=== PATIENT | female | born 1950 | race Caucasian/White ===

== ENCOUNTER → 2018-07-17 | Outpatient (CLI) | payer MEDICARE, OTHER | END | disposition home or self-care (01) | LOC: LABWHC1 11:58 | PROVIDERS: ATTEND Psychiatry & Neurology Pain Medicine | DX: Z51.81 Encounter for therapeutic drug level monitoring (principal) | CPT/HCPCS: 36415; 82565; 84520 ==

== ENCOUNTER → 2020-04-08 | Outpatient (CLI) | payer MEDICARE, OTHER ==
--- NOTE | 2020-04-08 14:04 | CT ---
EXAMINATION TYPE: CT abdomen pelvis w con DATE OF EXAM: 04/08/2020 COMPARISON: NONE HISTORY: 69-year-old female encounter further preprocedural examination. Sacrococcygeal disorders. 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 Delayed images through the kidneys and coronal/sagittal reconstructions perform ed. CT DLP: 765.00 mGycm Automated exposure control for dose reduction was used. FINDINGS: Heart normal size without pericardial effusion. Lung bases clear without pleural effusion. Tiny hiatal hernia. Mild prominence to the intrahepatic biliary system status post cholecystectomy. Mild itself does not appear dilated. Portal venous system is patent. Cholecystectomy clips. Adrenal glands and atrophic pancreas show no gross abnormality. Spleen borderline in size at 13.4 cm. Kidneys show innumerable small hypodense lesions. These are too small for accurate CT characterizatio n and likely represent numerous tiny cortical cysts. A 6-12 month follow-up CT can reassess these les ions. Symmetric uptake of contrast from both kidneys. No dilated small bowel, free fluid, free air. Normal appendix. Moderate stool within the transverse colon. No pericolonic inflammatory change. Bladder during distended. Numerous pelvic phleboliths. Uterus surgically absent. Suspect visualizatio n of the right ovary. Left ovary not clearly identified. No abnormal fluid collection pelvis or pelvi c lymphadenopathy. Bones: Generator device overlying the left gluteal region. Spinal stimulator leads enter the T11-T12 internal laminar space. Advanced hypertrophic facet arthropathy throughout. Moderate to advanced degenerative disc disease L3 -L4 and L4-L5. Bilateral L4 pars defects with grade 2 anterolisthesis at L4-L5. Mild degenerative change at the SI joints with some joint vacuum posteriorly. Moderate degenerative change at the left greater than right hips. IMPRESSION: 1. INNUMERABLE SMALL HYPODENSE LESIONS WITHIN BOTH KIDNEYS, LIKELY CORTICAL CYSTS. THEY ARE TOO SMALL FOR ACCURATE CT CHARACTERIZATION. A FOLLOW-UP IN 6-12 MONTHS CAN REASSESS THESE LESIONS FOR STABILIT Y. 2. HYPERTROPHIC FACET ARTHROPATHY THROUGHOUT. MODERATE TO ADVANCED DEGENERATIVE DISC DISEASE L3-L4 AN D L4-L5. BILATERAL L4 PARS DEFECTS WITH GRADE 2 ANTEROLISTHESIS AT L4-L5. 3. MILD DEGENERATIVE CHANGE AT THE SI JOINTS. MODERATE DEGENERATIVE CHANGE LEFT GREATER THAN RIGHT HI PS.
== END | disposition home or self-care (01) ==
LOC: RADCTMAIN 09:49
PROVIDERS: ATTEND Psychiatry & Neurology Neurology
DX: Z01.818 Encounter for other preprocedural examination (principal); N28.9 Disorder of kidney and ureter, unspecified; M53.3 Sacrococcygeal disorders, not elsewhere classified; M47.818 Spondylosis without myelopathy or radiculopathy, sacral and sacrococcygeal region; Z51.81 Encounter for therapeutic drug level monitoring
CPT/HCPCS: 82565; 84520; 74177; 36415; Q9967

== ENCOUNTER → 2020-07-22 | Outpatient (CLI) | payer MEDICARE, OTHER ==
--- NOTE | 2020-07-24 14:34 | MM ---
Reason for exam: screening (asymptomatic). Last mammogram was performed 8 years and 10 months ago. History: Patient is postmenopausal. Took progesterone for 15 years. Physical Findings: A clinical breast exam by your physician is recommended on an annual basis and results should be correlated with mammographic findings. MG 3D Screening Mammo W/Cad Bilateral CC and MLO view(s) were taken. Prior study comparison: September 24, 2011, right diagnostic mammogram w/CAD. March 25, 2011, [facility] DIGITAL RIGHT MAMMOGRAM w/CAD. There are scattered fibroglandular densities. There is chronic nodularity bilaterally. Multiple benign oil cyst calcifications. No significant changes when compared with prior studies. ASSESSMENT: Benign, BI-RAD 2 RECOMMENDATION: Routine screening mammogram of both breasts in 1 year.
== END | disposition home or self-care (01) ==
LOC: RADMAMWWP 13:07
PROVIDERS: ATTEND Family Medicine
DX: Z12.31 Encounter for screening mammogram for malignant neoplasm of breast (principal)
CPT/HCPCS: 77063; 77067

== ENCOUNTER → 2020-07-30 | Outpatient (CLI) | payer MEDICARE, OTHER ==
--- NOTE | 2020-07-30 13:07 | XR ---
EXAMINATION TYPE: XR chest 2V DATE OF EXAM: 07/30/2020 COMPARISON: None INDICATION: Preop hip surgery TECHNIQUE: Frontal and lateral views of the chest are obtained. FINDINGS: The heart size is normal. The pulmonary vasculature is normal. The lungs are clear. Stimulator leads are in the midthoracic region. IMPRESSION: 1. No acute pulmonary process.
[2020-07-30 19:40] LABS: HCT 36.9 % (37.2-46.3); HGB 11.8 g/dL (12.0-15.0); MCH 29.6 pg (27.0-32.0); MCV 92.5 fL (80.0-97.0); Platelet Count 203 X 10*3/uL (140-440); RBC 3.99 X 10*6/uL (4.10-5.20); WBC 7.26 X 10*3/uL (4.50-10.00)
[2020-07-30 19:57] LABS: INR 0.98 (0.90-1.11); Prothrombin Time 10.7 sec (9.9-11.9)
[2020-07-31 00:32] LABS: Hemoglobin A1C 6.9 % (4.0-6.0)
[2020-07-31 01:08] LABS: African American GFR (CKD) 40.2 (60.0-200.0); Anion Gap 17.9 mmol/L (4.00-12.00); BUN/Creat Ratio 23.33 Ratio (12.00-20.00); Carbon Dioxide 23.1 mmol/L (21.6-31.8); Non-African American GFR(CKD) 34.7 (60.0-200.0); Potassium 4.1 mmol/L (3.5-5.5)
[2020-08-02 16:28] LABS: Appearance,Urine Clear (Clear); Bilirubin,Urine Negative (Negative); Blood,Urine Negative (Negative); Color,Urine Colorless; Glucose,Urine (UA) Negative (Negative); Ketones,Urine Negative (Negative); Leukocyte Esterase,Urine Negative (Negative); Nitrite,Urine Negative (Negative); PH, Urine 6.5 (5.0-8.0); Protein,Urine Negative (Negative); Specific Gravity,Urine 1.007 (1.001-1.035); Urobilinogen,Urine <2.0 mg/dL (<2.0)
== END | disposition home or self-care (01) ==
LOC: LABWHC1 12:34
PROVIDERS: ATTEND Neurological Surgery
DX: M53.2X8 Spinal instabilities, sacral and sacrococcygeal region (principal); M43.16 Spondylolisthesis, lumbar region; G89.4 Chronic pain syndrome; I10 Essential (primary) hypertension
CPT/HCPCS: 80048; 85027; 85610; 81003; 83036; 71046; 93005; 36415; U0003; U0005

== ENCOUNTER → 2020-09-23 | Outpatient (CLI) | payer MEDICARE, OTHER ==
[2020-09-23 18:28] LABS: Basophils # (A) 0.05 X 10*3/uL (0.00-0.10); Basophils % (A) 0.7 %; Eosinophils # (A) 0.13 X 10*3/uL (0.04-0.35); Eosinophils % (A) 1.7 %; HCT 35.9 % (37.2-46.3); HGB 11.6 g/dL (12.0-15.0); Lymphocytes # (A) 1.68 X 10*3/uL (0.90-5.00); Lymphocytes % (A) 22.1 %; MCH 29.7 pg (27.0-32.0); MCHC 32.3 g/dL (32.0-37.0); MCV 91.8 fL (80.0-97.0); Mean Platelet Volume 10.1 fL (9.5-12.2); Monocytes % (A) 7.9 %; Neutrophils # (A) 5.14 X 10*3/uL (1.80-7.70); Neutrophils % (A) 67.5 %; Platelet Count 213 X 10*3/uL (140-440); RBC 3.91 X 10*6/uL (4.10-5.20); RDW 13.2 % (11.5-14.5); WBC 7.61 X 10*3/uL (4.50-10.00)
[2020-09-23 20:48] LABS: African American GFR (CKD) 40.2 (60.0-200.0); Albumin 4.8 g/dL (3.80-4.90); Albumin/Globulin Ratio 2.82 (1.60-3.17); Anion Gap 11.4 mmol/L (4.00-12.00); Calcium 9.9 mg/dL (8.7-10.3); Carbon Dioxide 28.6 mmol/L (21.6-31.8); Chol/HDL Ratio 2.88; Globulin 1.7 g/dL (1.6-3.3); LDL Cholesterol,Calculated 57.4 mg/dL (0.0-131.0); Non-African American GFR(CKD) 34.7 (60.0-200.0); Potassium 4.4 mmol/L (3.5-5.5); Total Bilirubin 0.3 mg/dL (0.3-1.2); Total Protein 6.5 g/dL (6.2-8.2); VLDL Calculation 32.6 mg/dL (5.00-40.00)
[2020-09-23 21:10] LABS: T4, Free (Free Thyroxine) 0.9 ng/dL (0.80-1.80)
[2020-09-24 00:16] LABS: Microalbumin Creatinine Ratio <30 mg/g Creat (0-30); Urine Creatinine 73.4 mg/dL
== END | disposition home or self-care (01) ==
LOC: LABWHC1 11:58
PROVIDERS: ATTEND Physician Assistant
DX: E78.2 Mixed hyperlipidemia (principal); E03.9 Hypothyroidism, unspecified; I10 Essential (primary) hypertension; E11.9 Type 2 diabetes mellitus without complications
CPT/HCPCS: 36415; 80053; 80061; 82043; 82570; 83036; 84439; 84443; 85025

== ENCOUNTER → 2020-12-26 | Outpatient (CLI) | payer MEDICARE, OTHER ==
--- NOTE | 2020-12-26 18:09 | CT ---
EXAMINATION TYPE: CT pelvis wo con DATE OF EXAM: 12/26/2020 COMPARISON: 04/08/2020 HISTORY: Pain Calcifications in the pelvis appear vascular. Bladder distends normally. Bowel gas pattern nonspecifi c. Atherosclerotic change aorta.. CT DLP: 286.5 mGycm Automated exposure control for dose reduction was used. FINDINGS: Generator device overlying the left gluteal region is noted. Spinal stimulator leads enter the lower thoracic interspace. Hypertrophic and degenerative changes of the spine are noted with grade 1 xander listhesis L4 on L5 and multilevel facet arthropathy. Suspect multilevel foraminal encroachment and ca nal stenosis. Bilateral spondylolysis of L4. Question previous laminectomy L4-L5. There is arthropathy of the bilateral SI joints pattern more typical of hypertrophic arthropathy. Scl erosis involving the posterior margin of the ilium and involving the medial margin of the right sacru m is nonspecific. There is bilateral arthropathy of the hips with bilateral ossific or calcifications adjacent to the l ateral margin of the glenoid which could be associated with chronic acetabular labral tear. No acute fracture. No dislocation. Hypertrophic spurring involving the greater trochanter noted bilaterally wi th soft tissue ossific patient. Calcifications in the pelvis appear vascular. Bladder distends normally. Bowel gas pattern nonspecifi c. Atherosclerotic change aorta.. IMPRESSION: 1. SI joint arthropathy. Area of sclerosis involving the right ilium and sacrum could be postsurgica l, post arthritic or related to prior trauma. 2. Bilateral hip arthropathy correlate for femoral acetabular impingement and chronic acetabular labr al tear 3. Severe degenerative disc disease lower lumbar spine with bilateral spondylolysis L4 with grade 1 a nterolisthesis L4 on L5. Multilevel foraminal encroachment and canal stenosis suspected
== END | disposition home or self-care (01) ==
LOC: RADCTMAIN 17:25
PROVIDERS: ATTEND Neurological Surgery
DX: M16.0 Bilateral primary osteoarthritis of hip (principal); M53.3 Sacrococcygeal disorders, not elsewhere classified; M51.36 Other intervertebral disc degeneration, lumbar region; M43.06 Spondylolysis, lumbar region
CPT/HCPCS: 72192

== ENCOUNTER → 2021-04-07 | Outpatient (CLI) | payer MEDICARE, OTHER ==
[2021-04-07 16:54] LABS: Basophils % (A) 1 %; Eosinophils # (A) 0.3 k/uL (0-0.7); Eosinophils % (A) 6 %; HCT 30.5 % (34.0-46.0); HGB 10.1 gm/dL (11.4-16.0); Lymphocytes # (A) 1.3 k/uL (1.0-4.8); Lymphocytes % (A) 24 %; MCH 30.7 pg (25.0-35.0); MCHC 33.3 g/dL (31.0-37.0); MCV 92.2 fL (80.0-100.0); Mean Platelet Volume 6.9; Monocytes # (A) 0.3 k/uL (0-1.0); Monocytes % (A) 6 %; Neutrophils # (A) 3.4 k/uL (1.3-7.7); Neutrophils % (A) 62 %; Platelet Count 192 k/uL (150-450); RBC 3.31 m/uL (3.80-5.40); RDW 12.8 % (11.5-15.5); WBC 5.5 k/uL (3.8-10.6)
[2021-04-07 17:02] LABS: Albumin 4.4 g/dL (3.5-5.0); Calcium 9.4 mg/dL (8.4-10.2); Potassium 4.4 mmol/L (3.5-5.1); Total Bilirubin 0.2 mg/dL (0.2-1.3); Total Protein 6.9 g/dL (6.3-8.2)
[2021-04-07 17:19] LABS: T4, Free (Free Thyroxine) 0.71 ng/dL (0.78-2.19)
[2021-04-08 00:17] LABS: Chol/HDL Ratio 3.54 Ratio; HDL Cholesterol 42.6 mg/dL (40.00-60.00); LDL Cholesterol,Calculated 56.8 mg/dL (0.0-131.0); VLDL Calculation 51.6 mg/dL (5.00-40.00)
[2021-04-08 08:30] LABS: Microalbumin Creatinine Ratio <30 mg/g Creat (0-30); Urine Creatinine 46.9 mg/dL (28.0-217.0)
--- NOTE | 2021-04-08 08:42 | XR ---
Left shoulder HISTORY: Pain 3 views of the left shoulder There is arthropathy at the acromioclavicular joint. Distal acromial spur is present. Left shoulder i s somewhat high riding, there is remodeling the humeral head. No evident fracture or dislocation. Lef t lung apex as visualized is normal. Thoracic stimulator lead is present at the midthoracic level, th oracic spondylosis is present. IMPRESSION: There may be underlying chronic rotator cuff tear, osteoarthritic change, correlate for i mpingement.
--- NOTE | 2021-04-08 09:44 | US ---
EXAMINATION TYPE: US carotid duplex BILAT DATE OF EXAM: 04/07/2021 COMPARISON: NONE CLINICAL HISTORY: 70-year-old female [id number] 2 diabetes mellitus without complication without l. TECHNIQUE: Carotid duplex ultrasound examination. Indirect Doppler criteria was utilized. FINDINGS: EXAM MEASUREMENTS: RIGHT: Peak Systolic Velocity (PSV) cm/sec ----- Right CCA: 55.6 ----- Right ICA: 90.4 ----- Right ECA: 68.2 ICA/CCA ratio: 1.6 RIGHT: End Diastole cm/sec ----- Right CCA: 20.3 ----- Right ICA: 38.9 ----- Right ECA: 12.7 LEFT: Peak Systolic Velocity (PSV) cm/sec ----- Left CCA: 57.2 ----- Left ICA: 66.4 ----- Left ECA: 52.6 ICA/CCA ratio: 1.2 LEFT: End Diastole cm/sec ----- Left CCA: 18.8 ----- Left ICA: 31.6 ----- Left ECA: 17.1 VERTEBRALS (direction of flow): Right Vertebral: Antegrade Left Vertebral: Antegrade Rhythm: Normal [employer] notes: No significant stenosis IMPRESSION: No hemodynamically significant internal carotid artery stenosis on either side. Criteria for Assigning % of Stenosis / Diameter reduction (Estimation based on the indirect measurements of the internal carotid artery velocities (ICA PSV). 1. Normal (no stenosis)=ICA PSV < 125 cm/s: ratio < 2.0: ICA EDV<40 cm/s. 2. Less than 50% stenosis=ICA PSV < 125 cm/s: ratio < 2.0: ICA EDV<40 cm/s. 3. 50 to 69% stenosis=ICA PSV of 125 to 230 cm/s: ration 2.0 ? 4.0: ICA EDV 40-100 cm/s. 4. Greater than 70% stenosis to near occlusion= ICA PSV > 230 cm/s: ratio > 4.0: ICA EDV > 100 cm/s. 5. Near occlusion= ICA PSV velocities may be low or undetectable: variable ratio and ICA EDV. 6. Total occlusion=unable to detect flow.
== END | disposition home or self-care (01) ==
LOC: RADUSWWP 16:02
PROVIDERS: ATTEND Family Medicine
DX: M19.012 Primary osteoarthritis, left shoulder (principal); E11.9 Type 2 diabetes mellitus without complications; M25.512 Pain in left shoulder; S49.92XA Unspecified injury of left shoulder and upper arm, initial encounter; R41.3 Other amnesia; R53.1 Weakness
CPT/HCPCS: 80053; 80061; 82043; 82570; 83036; 84439; 84443; 85025; 93880

== ENCOUNTER → 2021-04-28 | Outpatient (CLI) | payer MEDICARE, OTHER ==
--- NOTE | 2021-04-28 14:04 | XR ---
EXAMINATION TYPE: XR wrist complete LT DATE OF EXAM: 04/28/2021 CLINICAL HISTORY: Fall injury with pain TECHNIQUE: Frontal, lateral and oblique images of the left wrist are obtained. 4 view scaphoid view is performed. COMPARISON: None FINDINGS: Osseous structures are demineralized. There is linear lucency consistent with comminuted mi nimally displaced fracture through the radial aspect of the distal radial meta-epiphysis. Small chip- type curvilinear component measuring 10 x 2 mm is noted along the radial volar aspect. Moderate narro wing and spurring base of first metacarpal. Mild to moderate triscaphe joint space narrowing. Distal ulnar styloid intact. Old healed fracture of the proximal to mid diaphysis fifth metacarpal incidenta lly noted. Overlying soft tissue shows mild arterial vascular calcification. IMPRESSION: There is suspected acute intra-articular fracture of distal radial meta-epiphysis. (Initial encounter closed type posttraumatic fracture)
== END | disposition home or self-care (01) ==
LOC: RADXRMAIN 13:26
PROVIDERS: ATTEND Physician Assistant
DX: S69.92XA Unspecified injury of left wrist, hand and finger(s), initial encounter (principal); M25.532 Pain in left wrist; W19.XXXA Unspecified fall, initial encounter

== ENCOUNTER → 2021-09-08 | Outpatient (CLI) | payer MEDICARE, OTHER ==
--- NOTE | 2021-09-10 10:45 | MM ---
Reason for exam: screening (asymptomatic). Last mammogram was performed 1 year and 2 months ago. History: Patient is postmenopausal. Took progesterone for 15 years. Physical Findings: A clinical breast exam by your physician is recommended on an annual basis and results should be correlated with mammographic findings. MG 3D Screening Mammo W/Cad Bilateral CC and MLO view(s) were taken. Technologist: Maggi Pal RT (R)(M) Prior study comparison: July 22, 2020, bilateral MG 3d screening mammo w/cad. There are scattered fibroglandular densities. No significant changes when compared with prior studies. ASSESSMENT: Benign, BI-RAD 2 RECOMMENDATION: Routine screening mammogram of both breasts in 1 year.
== END | disposition home or self-care (01) ==
LOC: RADMAMWWP 12:36
PROVIDERS: ATTEND Family Medicine
DX: Z12.31 Encounter for screening mammogram for malignant neoplasm of breast (principal); Z78.0 Asymptomatic menopausal state
CPT/HCPCS: 77063; 77067

== ENCOUNTER → 2021-10-09 | Outpatient (CLI) | payer MEDICARE, OTHER ==
[2021-10-09 18:49] LABS: Basophils # (A) 0.05 X 10*3/uL (0.00-0.10); Basophils % (A) 0.8 %; Eosinophils # (A) 0.39 X 10*3/uL (0.04-0.35); Eosinophils % (A) 6.1 %; HCT 29.9 % (37.2-46.3); HGB 9.4 g/dL (12.0-15.0); Immature Grans, Automated 0.3 %; Lymphocytes # (A) 1.33 X 10*3/uL (0.90-5.00); Lymphocytes % (A) 20.7 %; MCH 29.9 pg (27.0-32.0); MCHC 31.4 g/dL (32.0-37.0); MCV 95.2 fL (80.0-97.0); Mean Platelet Volume 9.8 fL (9.5-12.2); Monocytes % (A) 7.8 %; NRBC Per 100 WBC 0 /100 WBCS (0.0-0.0); Neutrophils # (A) 4.13 X 10*3/uL (1.80-7.70); Neutrophils % (A) 64.3 %; Platelet Count 188 X 10*3/uL (140-440); RBC 3.14 X 10*6/uL (4.10-5.20); RDW 13.1 % (11.5-14.5); WBC 6.42 X 10*3/uL (4.50-10.00)
[2021-10-09 19:05] LABS: ALT 15 U/L (8-44); AST 18 U/L (13-35); African American GFR (CKD) 31.8 (60.0-200.0); Albumin 4.6 g/dL (3.8-4.9); Albumin/Globulin Ratio 2.09 (1.60-3.17); Alkaline Phosphatase 91 U/L (41-126); Calcium 9.8 mg/dL (8.7-10.3); Carbon Dioxide 27.5 mmol/L (20.0-27.5); Chloride 105 mmol/L (96-109); Globulin 2.2 g/dL (1.6-3.3); Glucose 138 mg/dL (70-110); LDL Cholesterol,Calculated 86.5 mg/dL (0.0-131.0); Non-African American GFR(CKD) 27.4 (60.0-200.0); Potassium 5.6 mmol/L (3.5-5.5); Sodium 145 mmol/L (135-145); Total Bilirubin <0.15 mg/dL (0.30-1.20); Total Protein 6.8 g/dL (6.2-8.2)
[2021-10-09 22:25] LABS: Microalbumin Creatinine Ratio <30 mg/g Creat (0-30); Urine Creatinine 28.1 mg/dL (28.0-217.0)
== END | disposition home or self-care (01) ==
LOC: LABWHC1 10:39
PROVIDERS: ATTEND Physician Assistant
DX: I10 Essential (primary) hypertension (principal); E11.9 Type 2 diabetes mellitus without complications; E03.9 Hypothyroidism, unspecified; E78.2 Mixed hyperlipidemia
CPT/HCPCS: 36415; 80053; 80061; 82043; 82570; 83036; 84439; 84443; 85025

== ENCOUNTER → 2021-11-18 | Outpatient (CLI) | payer MEDICARE, OTHER ==
[2021-11-18 18:11] LABS: Basophils # (A) 0.05 X 10*3/uL (0.00-0.10); Basophils % (A) 0.9 %; Eosinophils # (A) 0.22 X 10*3/uL (0.04-0.35); Eosinophils % (A) 3.8 %; HCT 30.4 % (37.2-46.3); HGB 9.8 g/dL (12.0-15.0); Immature Grans, Automated 0.3 %; Lymphocytes % (A) 22.5 %; MCHC 32.2 g/dL (32.0-37.0); Mean Platelet Volume 9.7 fL (9.5-12.2); Monocytes # (A) 0.48 X 10*3/uL (0.20-1.00); Monocytes % (A) 8.3 %; NRBC Per 100 WBC 0 /100 WBCS (0.0-0.0); Neutrophils # (A) 3.71 X 10*3/uL (1.80-7.70); Neutrophils % (A) 64.2 %; Platelet Count 176 X 10*3/uL (140-440); RBC 3.27 X 10*6/uL (4.10-5.20); RDW 12.4 % (11.5-14.5); WBC 5.78 X 10*3/uL (4.50-10.00)
[2021-11-18 18:22] LABS: ALT 18 U/L (8-44); AST 17 U/L (13-35); African American GFR (CKD) 34.1 (60.0-200.0); Albumin 4.5 g/dL (3.8-4.9); Alkaline Phosphatase 79 U/L (41-126); BUN/Creat Ratio 25.06 Ratio (12.00-20.00); Blood Urea Nitrogen 42.6 mg/dL (9.0-27.0); Calcium 9.4 mg/dL (8.7-10.3); Carbon Dioxide 21.9 mmol/L (20.0-27.5); Chloride 106 mmol/L (96-109); Globulin 1.8 g/dL (1.6-3.3); Glucose 155 mg/dL (70-110); Non-African American GFR(CKD) 29.4 (60.0-200.0); Phosphorus 4.1 mg/dL (2.4-5.1); Potassium 5.1 mmol/L (3.5-5.5); Sodium 140 mmol/L (135-145); Total Bilirubin <0.15 mg/dL (0.30-1.20); Total Protein 6.3 g/dL (6.2-8.2)
== END | disposition home or self-care (01) ==
LOC: LABWHC1 13:12
PROVIDERS: ATTEND Physician Assistant
DX: I12.9 Hypertensive chronic kidney disease with stage 1 through stage 4 chronic kidney disease, or unspecified chronic kidney disease (principal); N18.4 Chronic kidney disease, stage 4 (severe)
CPT/HCPCS: 36415; 80053; 84100; 85025

== ENCOUNTER → 2021-12-30 | Outpatient (CLI) | payer MEDICARE, OTHER ==
[2021-12-31 02:05] LABS: Appearance,Urine Turbid (Clear); Bacteria,Urine None Seen /HPF (None Seen); Bilirubin,Urine Negative (Negative); Blood,Urine Large (Negative); Color,Urine Yellow (Yellow); Ketones,Urine Negative (Negative); Nitrite,Urine Negative (Negative); PH, Urine 6.5 (5.0-8.0); Specific Gravity,Urine 1.011 (1.001-1.030); Urobilinogen,Urine 0.2 (0.2,1.0)
== END | disposition home or self-care (01) ==
LOC: LABWHC1 14:08
PROVIDERS: ATTEND Physician Assistant
DX: E11.9 Type 2 diabetes mellitus without complications (principal); R30.0 Dysuria
CPT/HCPCS: 81001

== ENCOUNTER → 2022-01-01 | Outpatient (CLI) | payer MEDICARE, OTHER ==
--- NOTE | 2022-01-01 09:49 | US ---
EXAMINATION TYPE: US kidneys/renal and bladder DATE OF EXAM: 01/01/2022 COMPARISON: CT April 08, 2020 CLINICAL HISTORY: N18.4 ckd. CKD EXAM MEASUREMENTS: Right Kidney: 10.2 x 4.7 x 5.1 cm Left Kidney: 9.5 x 4.1 x 4.7 cm Right Kidney: No evidence of hydro, Multiple, innumerable cysts scattered throughout kidney- largest= 1.5 x 1.0 x 1.2 cm Left Kidney: No evidence of hydro, Multiple, innumerable cysts scattered throughout kidney- largest= 1.5 x 1.2 x 1.8 cm Bladder: wnl Bilateral Jets seen: No Increased cortical echogenicity with thin-walled cysts are scattered throughout both kidneys no obvio us hydronephrosis. Bladder is adequately distended. IMPRESSION: Findings consistent with significant chronic medical renal disease and/or possibly adult type polycystic kidney disease. No hydronephrosis seen bilaterally.
== END | disposition home or self-care (01) ==
LOC: RADUSWWP 08:53
PROVIDERS: ATTEND Family Medicine
DX: N18.4 Chronic kidney disease, stage 4 (severe) (principal)
CPT/HCPCS: 76770

== ENCOUNTER 2022-03-25 16:41 | Emergency (ER) | payer MEDICARE, OTHER ==
[2022-03-25 17:10] VITALS: TEMP 98.2
[2022-03-25] MEDS ORDERED: amLODIPine 5 MG TAB PO STA (17:39)
--- NOTE | 2022-03-25 17:43 | ED ---
General Adult HPI - General Chief complaint: Headache Stated complaint: High BP,Headache Time Seen by Provider: 03/25/22 17:29 Source: patient, family, RN notes reviewed, old records reviewed Mode of arrival: ambulatory Limitations: no limitations - History of Present Illness Initial comments: 71-year-old female with chronic kidney disease presenting for evaluation of headache and hypertension. One week ago the patient was taken off of her lisinopril and switch to 5 mg of amlodipine. She states she has had a headache throughout the past week, on and off. This was moderate in nature but not thunderclap or sudden onset. She does have headache history and has been taking her abortive medication without significant relief. No focal numbness or weakness. No chest pain or abdominal pain. No changes in urination. - Related Data Previous Rx's Medication Instructions Recorded amLODIPine [Norvasc] 10 mg PO DAILY #30 tablet 03/25/22 Allergies Allergy/AdvReac Type Severity Reaction Status Date / Time furosemide [From Lasix] Allergy Confusion Verified 03/25/22 17:10 Review of Systems ROS Statement: Those systems with pertinent positive or pertinent negative responses have been documented in the HPI. ROS Other: All systems not noted in ROS Statement are negative. Past Medical History Past Medical History: Diabetes Mellitus, Hypertension, Renal Disease, Thyroid Disorder Additional Past Medical History / Comment(s): renal insuff History of Any Multi-Drug Resistant Organisms: None Reported Past Surgical History: Cholecystectomy, Hysterectomy, Orthopedic Surgery Additional Past Surgical History / Comment(s): cervical fusion Past Psychological History: No Psychological Hx Reported Smoking Status: Never smoker Past Alcohol Use History: None Reported Past Drug Use History: None Reported General Exam Limitations: no limitations General appearance: alert, in no apparent distress Head exam: Present: atraumatic, normocephalic Eye exam: Present: normal appearance, PERRL ENT exam: Present: normal exam Neck exam: Present: normal inspection. Absent: tenderness, meningismus Respiratory exam: Present: normal lung sounds bilaterally. Absent: respiratory distress, wheezes Cardiovascular Exam: Present: regular rate, normal rhythm, systolic murmur GI/Abdominal exam: Present: soft. Absent: distended, tenderness Extremities exam: Present: normal inspection, normal capillary refill. Absent: pedal edema Neurological exam: Present: alert, oriented X3, CN II-XII intact. Absent: motor sensory deficit Psychiatric exam: Present: normal affect, normal mood Skin exam: Present: warm, dry, intact. Absent: cyanosis, diaphoretic Course Vital Signs 03/25/22 03/25/22 17:05 18:33 Temperature 98.2 F Pulse Rate 70 62 Respiratory 16 18 Rate Blood Pressure 174/93 146/84 O2 Sat by Pulse 97 98 Oximetry Medical Decision Making - Medical Decision Making 71 yo female presenting with headache. Patient does have history of chronic headaches but his had persistent headache over the past one week. Additionally her blood pressure has been elevated. She was recently switched from lisinopril to 5 mg of Norvasc. She's given additional 5 mg in the emergency department and head CT is performed which is negative for intracranial hemorrhage or mass effect, without acute process. Blood pressure is down trending in the emergency department. She will take 10 mg of Norvasc daily and monitor her blood pressure closely. 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 Disposition Clinical Impression: Headache, Hypertension Disposition: HOME SELF-CARE Condition: Fair Instructions (If sedation given, give patient instructions): Acute Headache (ED), Hypertension (ED) Prescriptions: amLODIPine [Norvasc] 10 mg PO DAILY #30 tablet Is patient prescribed a controlled substance at d/c from ED?: No Referrals: Amparo Moreno PAC [REFERRING] - 1-2 days Jeffry Garsia DO [STAFF PHYSICIAN] - 1-2 days Time of Disposition: 18:41
[2022-03-25 18:33] VITALS: BP 146/84; PULSE 62; RESP 18
--- NOTE | 2022-03-25 18:40 | CT ---
EXAMINATION: CT brain wo con DATE AND TIME: 03/25/2022 6:31 PM CLINICAL INDICATION: PHH; BENJAMIN/HTN TECHNIQUE: Standard departmental protocol.; 1099.4 mGy-cm COMPARISON: None. FINDINGS: The calvarium is intact. There is no intracranial hemorrhage. There is no intracranial mass or mass effect. No definite new intra-axial or extra-axial attenuation defect. The paranasal sinuses, middle ear cavities, and mastoid sinus air cells are clear. The orbits are unremarkable. IMPRESSION: No acute processes.
== END 2022-03-25 19:05 | disposition home or self-care (01) ==
LOC: EC 16:41
DX: I10 Essential (primary) hypertension (principal); R51.9 Headache, unspecified; E11.9 Type 2 diabetes mellitus without complications; E07.9 Disorder of thyroid, unspecified; Z79.83 Long term (current) use of bisphosphonates; Z88.2 Allergy status to sulfonamides
CPT/HCPCS: 70450; 99284

== ENCOUNTER → 2022-09-24 | Outpatient (CLI) | payer MEDICARE, OTHER ==
--- NOTE | 2022-09-27 09:03 | MM ---
Reason for Exam: Screening (asymptomatic). Last screening mammogram was performed 12 month(s) ago. Patient History: Menarche at age 11. First Full-Term at age 18. Left ovary removed at age 45. Hysterectomy at age 36. Postmenopausal. Progesterone for 15 years until age 60. Risk Values: Diamante 5 year model risk: 1.6%. NCI Lifetime model risk: 3.9%. Prior Study Comparison: 09/24/2011 Right Diagnostic Mammogram, [facility]. 07/22/2020 Bilateral Screening Mammogram, [facility]. 09/08/2021 Bilateral Screening Mammogram, [facility]. Tissue Density: There are scattered fibroglandular densities. Findings: Analyzed By CAD. There is no suspicious group of microcalcifications within either breast. Benign-appearing round calcifications within both breasts. No new suspicious mass within the left breast. Asymmetry demonstrated within the posterior aspect of the right breast only on the MLO view along the posterior nipple line. Overall Assessment: Incomplete: need additional imaging evaluation, BI-RAD 0 Management: Diagnostic Mammogram of the right breast. A clinical breast exam by your physician is recommended on an annual basis and results should be correlated with mammographic findings. [facility] will attempt to contact patient to return for supplemental views and ultrasound if indicated. Electronically signed and approved by: Ino Friend D.O.
== END | disposition home or self-care (01) ==
LOC: RADMAMWWP 12:24
PROVIDERS: ATTEND Family Medicine
DX: Z12.31 Encounter for screening mammogram for malignant neoplasm of breast (principal); Z78.0 Asymptomatic menopausal state
CPT/HCPCS: 77063; 77067

== ENCOUNTER → 2022-09-24 | Outpatient (CLI) | payer MEDICARE, OTHER ==
[2022-09-24 14:37] LABS: Creatinine,Urine Random 58.5 mg/dL; Protein/Creatinine Ratio,Urine 0.222
[2022-09-24 20:04] LABS: Basophils # (A) 0.06 X 10*3/uL (0.00-0.10); Basophils % (A) 1.1 %; Eosinophils # (A) 0.16 X 10*3/uL (0.04-0.35); Eosinophils % (A) 2.8 %; HCT 33.2 % (37.2-46.3); HGB 10.4 g/dL (12.0-15.0); Immature Grans, Automated 0.4 %; Lymphocytes # (A) 1.41 X 10*3/uL (0.90-5.00); MCHC 31.3 g/dL (32.0-37.0); MCV 92.5 fL (80.0-97.0); Mean Platelet Volume 9.6 fL (9.5-12.2); Monocytes # (A) 0.45 X 10*3/uL (0.20-1.00); NRBC Per 100 WBC 0 /100 WBCS (0.0-0.0); Neutrophils # (A) 3.54 X 10*3/uL (1.80-7.70); Neutrophils % (A) 62.7 %; Platelet Count 202 X 10*3/uL (140-440); RBC 3.59 X 10*6/uL (4.10-5.20); RDW 13.8 % (11.5-14.5); WBC 5.64 X 10*3/uL (4.50-10.00)
[2022-09-24 21:10] LABS: Appearance,Urine Clear (Clear); Bilirubin,Urine Negative (Negative); Blood,Urine Negative (Negative); Color,Urine Yellow (Yellow); Ketones,Urine Negative (Negative); Nitrite,Urine Negative (Negative); PH, Urine 6.5 (5.0-8.0); Specific Gravity,Urine 1.011 (1.001-1.030); Urobilinogen,Urine 0.2 (0.2,1.0)
[2022-09-24 21:19] LABS: Bacteria,Urine 1+ /HPF (None Seen)
[2022-09-24 21:59] LABS: African American GFR (CKD) 24.2 (60.0-200.0); Albumin 4.5 g/dL (3.8-4.9); Albumin/Globulin Ratio 2.14 (1.60-3.17); Anion Gap 12.1 mmol/L (10.00-18.00); BUN/Creat Ratio 19.51 Ratio (12.00-20.00); Blood Urea Nitrogen 44.1 mg/dL (9.0-27.0); Calcium 10.5 mg/dL (8.7-10.3); Carbon Dioxide 25.3 mmol/L (20.0-27.5); Globulin 2.1 g/dL (1.6-3.3); Magnesium 1.9 mg/dL (1.5-2.4); Non-African American GFR(CKD) 20.8 (60.0-200.0); Phosphorus 4.8 mg/dL (2.4-5.1); Potassium 5.7 mmol/L (3.5-5.5); Total Bilirubin 0.2 mg/dL (0.30-1.20); Total Protein 6.6 g/dL (6.2-8.2)
== END | disposition home or self-care (01) ==
LOC: LABWHC1 12:07
PROVIDERS: ATTEND Nurse Practitioner Acute Care
DX: E21.3 Hyperparathyroidism, unspecified (principal); E55.9 Vitamin D deficiency, unspecified; N39.0 Urinary tract infection, site not specified; D63.1 Anemia in chronic kidney disease; N18.32 Chronic kidney disease, stage 3b
CPT/HCPCS: 36415; 80053; 81001; 82306; 82570; 83735; 83970; 84100; 84156; 85025; 87086

== ENCOUNTER → 2022-09-30 | Outpatient (CLI) | payer MEDICARE, OTHER ==
--- NOTE | 2022-09-30 14:04 | MM ---
Reason for Exam: Clinical finding. Last screening mammogram was performed less than 1 month ago. Patient History: Menarche at age 11. First Full-Term at age 18. Left ovary removed at age 45. Hysterectomy at age 36. Postmenopausal. Progesterone for 15 years until age 60. Risk Values: Diamante 5 year model risk: 1.6%. NCI Lifetime model risk: 3.7%. Tissue Density: Right: The breast tissue is heterogeneously dense. This may lower the sensitivity of mammography. Findings: Analyzed By CAD. An 8mm oval circumscribed mass marked posterior aspect right breast persists on additional views in the far lateral aspect. Low-lying lymph node suspected. Overall Assessment: Incomplete: need additional imaging evaluation, BI-RAD 0 Management: Diagnostic Breast Ultrasound of the right breast. Targeted ultrasound right breast. Results were given to the patient verbally at the time of exam. Patient should continue monthly self-breast exams. A clinical breast exam by your physician is recommended on an annual basis. Note on Diamante scores and lifetime risk: 1. A Diamante score greater than 3% is considered moderate risk. If this is the case, consider specialist referral to assess eligibility for a risk reducing agent. 2. If overall lifetime risk for the development of breast cancer is 20% or higher, the patient may qualify for future screening with alternating mammogram and breast MRI. Electronically signed and approved by: Yusuf Ortega M.D.
--- NOTE | 2022-09-30 14:21 | USB ---
Reason for Exam: Follow-up at short interval from prior study. Patient History: Menarche at age 11. First Full-Term at age 18. Left ovary removed at age 45. Hysterectomy at age 36. Postmenopausal. Progesterone for 15 years until age 60. Risk Values: Diamante 5 year model risk: 1.6%. NCI Lifetime model risk: 3.7%. Technique: Method: Targeted. Patient Position: Supine. Prior Study Comparison: 07/22/2020 Bilateral Screening Mammogram, [facility]. 09/08/2021 Bilateral Screening Mammogram, [facility]. 09/24/2022 Bilateral MG 3D screening mammo w/cad, [facility]. Findings: The upper outer quadrant of the right breast, the axilla of the right breast and the retroareolar of the right breast were scanned. A complete US of all four quadrants of the breast and retro-areolar region were reviewed. No solid or cystic masses are identified..Targeted ultrasound.At 10:00 position 12 cm distance from nipple there is 4 x 8 x 4 mm simple appearing benign lymph node and at 12:00 position 9 cm distance from nipple there is additional 5 x 3 x 6 mm oval circumscribed lesion favoring additional benign lymph node. . Overall Assessment: Negative, BI-RAD 1 Management: Screening Mammogram of both breasts in 1 year. Return to routine follow-up. Results were given to the patient verbally at the time of exam. Electronically signed and approved by: Yusuf Ortega M.D.
== END | disposition home or self-care (01) ==
LOC: RADMAMWWP 13:22
PROVIDERS: ATTEND Family Medicine
DX: R92.8 Other abnormal and inconclusive findings on diagnostic imaging of breast (principal); Z78.0 Asymptomatic menopausal state
CPT/HCPCS: 77065; 76642; G0279; 77061

== ENCOUNTER 2023-03-16 14:59 | Emergency (ER) | payer MEDICARE, OTHER ==
[2023-03-16 15:24] VITALS: BP 165/89; PULSE 97; RESP 18; TEMP 98.2
--- NOTE | 2023-03-16 15:24 | ED ---
Nausea/Vomiting/Diarrhea HPI - General Source: patient, RN notes reviewed Mode of arrival: ambulatory Limitations: no limitations <Maxwell Gruber - Last Filed: 03/16/23 15:22> <Noemi Lucas - Last Filed: 03/18/23 07:04> - General Chief complaint: Nausea/Vomiting/Diarrhea Stated complaint: diarrhea Time Seen by Provider: 03/16/23 15:22 - History of Present Illness Initial comments: 72-year-old female presents emergency Department chief complaint of diarrhea 6 days. Patient states she's not had any recent antiemetics no recent traveling she denies any history of any bowel infections. Denies any melanotic stools. Patient offers no other complaints (Maxwell Gruber) I agree with the above HPI. Patient does not have abdominal pain, fever, nausea, vomiting. States she feels well just wanted to get checked out. No history of C. diff. (Noemi Lucas) - Related Data Previous Rx's Medication Instructions Recorded amLODIPine [Norvasc] 10 mg PO DAILY #30 tablet 03/25/22 Allergies Allergy/AdvReac Type Severity Reaction Status Date / Time furosemide [From Lasix] Allergy Confusion Verified 03/16/23 15:19 Review of Systems ROS Other: All systems not noted in ROS Statement are negative. <Maxwell Gruber - Last Filed: 03/16/23 15:22> ROS Other: All systems not noted in ROS Statement are negative. <Noemi Lucas - Last Filed: 03/18/23 07:04> ROS Statement: Those systems with pertinent positive or pertinent negative responses have been documented in the HPI. Past Medical History Past Medical History: Diabetes Mellitus, Hypertension, Renal Disease, Thyroid Disorder Additional Past Medical History / Comment(s): renal insuff History of Any Multi-Drug Resistant Organisms: None Reported Past Surgical History: Cholecystectomy, Hysterectomy, Orthopedic Surgery Additional Past Surgical History / Comment(s): cervical fusion Past Psychological History: No Psychological Hx Reported Smoking Status: Never smoker Past Alcohol Use History: None Reported Past Drug Use History: None Reported <Maxwell Gruber - Last Filed: 03/16/23 15:22> General Exam Limitations: no limitations <Maxwell Gruber - Last Filed: 03/16/23 15:22> General appearance: alert Head exam: Present: atraumatic, normocephalic, normal inspection Eye exam: Present: normal appearance, PERRL, EOMI. Absent: scleral icterus, conjunctival injection, periorbital swelling Respiratory exam: Present: normal lung sounds bilaterally. Absent: respiratory distress, wheezes, rales, rhonchi, stridor Cardiovascular Exam: Present: regular rate, normal rhythm, normal heart sounds. Absent: systolic murmur, diastolic murmur, rubs, gallop, clicks GI/Abdominal exam: Present: soft, normal bowel sounds. Absent: distended, tenderness, guarding, rebound, rigid Neurological exam: Present: alert Psychiatric exam: Present: normal affect, normal mood Skin exam: Present: warm, dry, intact, normal color. Absent: rash <Noemi Lucas - Last Filed: 03/18/23 07:04> - General Exam Comments Initial Comments: Visual Physical Exam Vital signs reviewed General: Well-appearing, nontoxic, no acute distress. Head: Normocephalic, atraumatic Eyes: PERRLA, EOMI ENT: Airway patent Chest: Nonlabored breathing Skin: No visual rash, normal skin tone Neuro: Alert and oriented 3 Musculoskeletal: No gross abnormalities (Maxwell Gruber) Course Vital Signs 03/16/23 15:16 Temperature 98.2 F Pulse Rate 97 Respiratory 18 Rate Blood Pressure 165/89 O2 Sat by Pulse 99 Oximetry Medical Decision Making <Maxwell Gruber - Last Filed: 03/16/23 15:22> - Lab Data Result diagrams: 03/16/23 19:37 03/16/23 21:30 <Noemi Lucas - Last Filed: 03/18/23 07:04> - Medical Decision Making I performed the quick note portion of this chart signed Maxwell Gruber PA-C (Maxwell Gruber) Was pt. sent in by a medical professional or institution ([facility], SAUSAGE TIER, urgent care, hospital, or correction...) When possible be specific @ -No Did you speak to anyone other than the patient for history (EMS, parent, family, police, friend...)? What history was obtained from this source @ -No Did you review nursing and triage notes (agree or disagree)? Why? @ -I reviewed and agree with nursing and triage notes Were old charts reviewed (outside hosp., previous admission, EMS record, old EKG, old radiological studies, urgent care reports/EKG's, correction records)? Report findings @ -No old charts were reviewed Differential Diagnosis (chest pain, altered mental status, abdominal pain women, abdominal pain men, vaginal bleeding, weakness, fever, dyspnea, syncope, headache, dizziness, GI bleed, back pain, seizure, CVA, palpatations, mental health)? @ -Differential Abdominal Pain Women: Appendicitis, Cholecystitis, diverticulosis, ischemic bowel, pancreatitis, hepatitis, UTI, gastroenteritis, AAA, incarcerated hernia, bowel obstruction, constipation, inflammatory bowel, hepatitis, peptic ulcer disease, splenic infarction, perforated viscus, vulvitis, ovarian torsion, PID, kidney stone, placenta abruption, this is not meant to be an all-inclusive list EKG interpreted by me (3pts min.). @ -As above X-rays interpreted by me (1pt min.). @ -None done CT interpreted by me (1pt min.). @ -None done U/S interpreted by me (1pt. min.). @ -None done What testing was considered but not performed or refused? (CT, X-rays, U/S, labs)? Why? @ -None What meds were considered but not given or refused? Why? @ -None Did you discuss the management of the patient with other professionals (professionals i.e. , PA, SAUSAGE TIER, lab, RT, psych nurse, perinatal social worker, sales representative printing paper, teacher, environmental health officer, telephonic nurse case manager)? Give summary @ -No Was smoking cessation discussed for >3mins.? @ -No Was critical care preformed (if so, how long)? @ -No Were there social determinants of health that impacted care today? How? (Homelessness, low income, unemployed, alcoholism, drug addiction, transportation, low edu. Level, literacy, decrease access to med. care, halfway, rehab)? @ -No Was there de-escalation of care discussed even if they declined (Discuss DNR or withdrawal of care, Hospice)? DNR status @ -No What co-morbidities impacted this encounter? (DM, HTN, Smoking, COPD, CAD, Cancer, CVA, ARF, Chemo, Hep., AIDS, mental health diagnosis, sleep apnea, morbid obesity)? @ -None Was patient admitted / discharged? Hospital course, mention meds given and route, prescriptions, significant lab abnormalities, going to OR and other pertinent info. @ -72-year-old presented for diarrhea. No alarming features. The abdomen is soft and nontender. CBC is normal no leukocytosis. She requesting to leave before CMP results. She is in stable medical condition for discharge Undiagnosed new problem with uncertain prognosis? @ -No Drug Therapy requiring intensive monitoring for toxicity (Heparin, Nitro, Insulin, Cardizem)? @ -No Were any procedures done? @ -No Diagnosis/symptom? @ -Diarrhea Acute, or Chronic, or Acute on Chronic? @ Acute Uncomplicated (without systemic symptoms) or Complicated (systemic symptoms)? @ Uncomplicated Side effects of treatment? @ -No Exacerbation, Progression, or Severe Exacerbation? @ -No Poses a threat to life or bodily function? How? (Chest pain, USA, [place], pneumonia, PE, COPD, DKA, ARF, appy, cholecystitis, CVA, Diverticulitis, Homicidal, Suicidal, threat to staff... and all critical care pts) @ -No Dr. Hurley is my attending (Noemi Lucas) - Lab Data Lab Results 03/16/23 03/16/23 03/16/23 Range/Units 19:37 19:37 19:42 WBC 5.3 (3.8-10.6) k/uL RBC 4.17 (3.80-5.40) m/uL Hgb 12.2 (11.4-16.0) gm/dL Hct 36.4 (34.0-46.0) % MCV 87.2 (80.0-100.0) fL MCH 29.3 (25.0-35.0) pg MCHC 33.6 (31.0-37.0) g/dL RDW 14.0 (11.5-15.5) % Plt Count 216 (150-450) k/uL MPV 7.5 Neutrophils % 60 % Lymphocytes % 21 % Monocytes % 12 % Eosinophils % 2 % Basophils % 1 % Neutrophils # 3.2 (1.3-7.7) k/uL Lymphocytes # 1.1 (1.0-4.8) k/uL Monocytes # 0.7 (0-1.0) k/uL Eosinophils # 0.1 (0-0.7) k/uL Basophils # 0.0 (0-0.2) k/uL Sodium (137-145) mmol/L Potassium (3.5-5.1) mmol/L Chloride (98-107) mmol/L Carbon Dioxide (22-30) mmol/L Anion Gap mmol/L BUN (7-17) mg/dL Creatinine (0.52-1.04) mg/dL Est GFR (CKD-EPI)AfAm (>60 ml/min/1.73 sqM) Est GFR (CKD-EPI)NonAf (>60 ml/min/1.73 sqM) Glucose (74-99) mg/dL Calcium (8.4-10.2) mg/dL Magnesium (1.6-2.3) mg/dL Total Bilirubin (0.2-1.3) mg/dL AST (14-36) U/L ALT (4-34) U/L Alkaline Phosphatase (38-126) U/L Total Protein (6.3-8.2) g/dL Albumin (3.5-5.0) g/dL Lipase (23-300) U/L Urine Color Light Yellow Urine Appearance Cloudy H (Clear) Urine pH 5.5 (5.0-8.0) Ur Specific [place] 1.014 (1.001-1.035) Urine Protein 1+ H (Negative) Urine Glucose (UA) Negative (Negative) Urine Ketones Negative (Negative) Urine Blood Small H (Negative) Urine Nitrite Negative (Negative) Urine Bilirubin Negative (Negative) Urine Urobilinogen <2.0 (<2.0) mg/dL Ur Leukocyte Esterase Small H (Negative) Urine RBC 4 (0-5) /hpf Urine WBC 2 (0-5) /hpf Ur Squamous Epith Cells 2 (0-4) /hpf Urine Mucus Rare H (None) /hpf Influenza Type A (PCR) Not Detected (Not Detectd) Influenza Type B (PCR) Not Detected (Not Detectd) RSV (PCR) Not Detected (Not Detectd) SARS-CoV-2 (PCR) Not Detected (Not Detectd) 03/16/23 Range/Units 21:30 WBC (3.8-10.6) k/uL RBC (3.80-5.40) m/uL Hgb (11.4-16.0) gm/dL Hct (34.0-46.0) % MCV (80.0-100.0) fL MCH (25.0-35.0) pg MCHC (31.0-37.0) g/dL RDW (11.5-15.5) % Plt Count (150-450) k/uL MPV Neutrophils % % Lymphocytes % % Monocytes % % Eosinophils % % Basophils % % Neutrophils # (1.3-7.7) k/uL Lymphocytes # (1.0-4.8) k/uL Monocytes # (0-1.0) k/uL Eosinophils # (0-0.7) k/uL Basophils # (0-0.2) k/uL Sodium 136 L (137-145) mmol/L Potassium 4.0 (3.5-5.1) mmol/L Chloride 105 (98-107) mmol/L Carbon Dioxide 20 L (22-30) mmol/L Anion Gap 11 mmol/L BUN 33 H (7-17) mg/dL Creatinine 1.91 H (0.52-1.04) mg/dL Est GFR (CKD-EPI)AfAm 29 (>60 ml/min/1.73 sqM) Est GFR (CKD-EPI)NonAf 26 (>60 ml/min/1.73 sqM) Glucose 97 (74-99) mg/dL Calcium 9.7 (8.4-10.2) mg/dL Magnesium 1.4 L (1.6-2.3) mg/dL Total Bilirubin 0.5 (0.2-1.3) mg/dL AST 29 (14-36) U/L ALT 19 (4-34) U/L Alkaline Phosphatase 82 (38-126) U/L Total Protein 6.9 (6.3-8.2) g/dL Albumin 4.3 (3.5-5.0) g/dL Lipase 31 (23-300) U/L Urine Color Urine Appearance (Clear) Urine pH (5.0-8.0) Ur Specific [place] (1.001-1.035) Urine Protein (Negative) Urine Glucose (UA) (Negative) Urine Ketones (Negative) Urine Blood (Negative) Urine Nitrite (Negative) Urine Bilirubin (Negative) Urine Urobilinogen (<2.0) mg/dL Ur Leukocyte Esterase (Negative) Urine RBC (0-5) /hpf Urine WBC (0-5) /hpf Ur Squamous Epith Cells (0-4) /hpf Urine Mucus (None) /hpf Influenza Type A (PCR) (Not Detectd) Influenza Type B (PCR) (Not Detectd) RSV (PCR) (Not Detectd) SARS-CoV-2 (PCR) (Not Detectd) Disposition <Maxwell Gruber - Last Filed: 03/16/23 15:22> Is patient prescribed a controlled substance at d/c from ED?: No <Noemi Lucas - Last Filed: 03/18/23 07:04> Clinical Impression: Diarrhea Disposition: HOME SELF-CARE Instructions (If sedation given, give patient instructions): Acute Diarrhea (E D) Additional Instructions: Increase fluid intake. Follow-up with primary care provider in one to 2 days. Return to the emergency department if you experience new, concerning, or worsening symptoms. Referrals: Phillip De León, DO [Primary Care Provider] - 1-2 days
[2023-03-16] MEDS ORDERED: SODIUM CHLORIDE 0.9% 1,000 ML IV STA (19:20)
[2023-03-16 20:03] LABS: Appearance,Urine Cloudy (Clear); Bilirubin,Urine Negative (Negative); Blood,Urine Small (Negative); Color,Urine Light Yellow; Glucose,Urine (UA) Negative (Negative); Ketones,Urine Negative (Negative); Leukocyte Esterase,Urine Small (Negative); Mucus,Urine Rare /hpf; Nitrite,Urine Negative (Negative); PH, Urine 5.5 (5.0-8.0); Protein,Urine 1+ (Negative); RBC,Urine 4 /hpf (0-5); Specific Gravity,Urine 1.014 (1.001-1.035); Squamous Epithelial Cell,Urine 2 /hpf (0-4); Urobilinogen,Urine <2.0 mg/dL (<2.0); WBC,Urine 2 /hpf (0-5)
[2023-03-16 20:14] LABS: Basophils % (A) 1 %; Eosinophils # (A) 0.1 k/uL (0-0.7); Eosinophils % (A) 2 %; HCT 36.4 % (34.0-46.0); HGB 12.2 gm/dL (11.4-16.0); Lymphocytes # (A) 1.1 k/uL (1.0-4.8); Lymphocytes % (A) 21 %; MCH 29.3 pg (25.0-35.0); MCHC 33.6 g/dL (31.0-37.0); MCV 87.2 fL (80.0-100.0); Mean Platelet Volume 7.5; Monocytes # (A) 0.7 k/uL (0-1.0); Monocytes % (A) 12 %; Neutrophils # (A) 3.2 k/uL (1.3-7.7); Neutrophils % (A) 60 %; Platelet Count 216 k/uL (150-450); RBC 4.17 m/uL (3.80-5.40); WBC 5.3 k/uL (3.8-10.6)
[2023-03-16 22:12] LABS: ALT 19 U/L (4-34); AST 29 U/L (14-36); African American GFR (CKD) 29 (>60 ml/min/1.73 sqM); Albumin 4.3 g/dL (3.5-5.0); Alkaline Phosphatase 82 U/L (38-126); Anion Gap 11 mmol/L; Blood Urea Nitrogen 33 mg/dL (7-17); Calcium 9.7 mg/dL (8.4-10.2); Carbon Dioxide 20 mmol/L (22-30); Chloride 105 mmol/L (98-107); Glucose 97 mg/dL (74-99); Lipase 31 U/L (23-300); Magnesium 1.4 mg/dL (1.6-2.3); Non-African American GFR(CKD) 26 (>60 ml/min/1.73 sqM); Sodium 136 mmol/L (137-145); Total Bilirubin 0.5 mg/dL (0.2-1.3); Total Protein 6.9 g/dL (6.3-8.2)
== END 2023-03-16 22:38 | disposition home or self-care (01) ==
LOC: EC 14:59
DX: R19.7 Diarrhea, unspecified (principal); E11.9 Type 2 diabetes mellitus without complications; I10 Essential (primary) hypertension; Z88.8 Allergy status to other drugs, medicaments and biological substances; Z90.49 Acquired absence of other specified parts of digestive tract; Z20.822 Contact with and (suspected) exposure to COVID-19
CPT/HCPCS: 36415; 80053; 81001; 83690; 83735; 85025; 87636; 99284

== ENCOUNTER → 2023-06-13 | Outpatient (CLI) | payer OTHER ==
[2023-06-13 15:51] LABS: Basophils # (A) 0.03 X 10*3/uL (0.00-0.10); Basophils % (A) 0.6 %; Eosinophils # (A) 0.17 X 10*3/uL (0.04-0.35); Eosinophils % (A) 3.2 %; HCT 34.5 % (37.2-46.3); HGB 11.4 g/dL (12.0-15.0); Lymphocytes # (A) 1.05 X 10*3/uL (0.90-5.00); Lymphocytes % (A) 19.7 %; MCH 28.6 pg (27.0-32.0); MCV 86.5 FL (80.0-97.0); Mean Platelet Volume 10.2 FL (9.5-12.2); Monocytes # (A) 0.47 X 10*3/uL (0.20-1.00); Monocytes % (A) 8.8 %; NRBC Per 100 WBC 0 X 10*3/uL (0.00-0.01); Neutrophils # (A) 3.61 X 10*3/uL (1.80-7.70); Neutrophils % (A) 67.5 %; Platelet Count 147 X 10*3/uL (140-440); RBC 3.99 X 10*6/uL (4.10-5.20); RDW 13.4 % (11.5-14.5); WBC 5.34 X 10*3/uL (4.50-10.00)
[2023-06-13 16:31] LABS: ALT 17 U/L (8-44); AST 23 U/L (13-35); Albumin 4.8 g/dL (3.8-4.9); Alkaline Phosphatase 81 U/L (41-126); BUN/Creat Ratio 20.45 Ratio (12.00-20.00); Calcium 9.9 mg/dL (8.7-10.3); Carbon Dioxide 23.7 mmol/L (21.6-31.8); Chloride 104 mmol/L (96-109); Globulin 2.4 g/dL (1.6-3.3); Glucose 123 mg/dL (70-110); LDL Cholesterol,Calculated 222.3 mg/dL (0.0-131.0); Sodium 142 mmol/L (135-145); Total Bilirubin 0.4 mg/dL (0.3-1.2); Total Protein 7.2 g/dL (6.2-8.2)
== END | disposition home or self-care (01) ==
LOC: LABWHC1 10:50
PROVIDERS: ATTEND Psychiatry & Neurology Neurology
DX: I10 Essential (primary) hypertension (principal); I49.9 Cardiac arrhythmia, unspecified; I49.3 Ventricular premature depolarization; E13.29 Other specified diabetes mellitus with other diabetic kidney complication; E03.9 Hypothyroidism, unspecified; F41.8 Other specified anxiety disorders; E78.5 Hyperlipidemia, unspecified; R94.31 Abnormal electrocardiogram [ECG] [EKG]
CPT/HCPCS: 36415; 80053; 80061; 82306; 83036; 84439; 84443; 84481; 85025; 93005

== ENCOUNTER → 2023-10-04 | Outpatient (CLI) | payer MEDICARE, OTHER ==
--- NOTE | 2023-10-06 11:27 | MM ---
Reason for Exam: Screening (asymptomatic). Last mammogram was performed 1 year(s) and 1 month(s) ago. Patient History: Menarche at age 11. First Full-Term at age 18. Left ovary removed at age 45. Hysterectomy at age 36. Postmenopausal. Progesterone for 15 years until age 60. Risk Values: Diamante 5 year model risk: 1.6%. NCI Lifetime model risk: 3.4%. Prior Study Comparison: 09/08/2021 Bilateral Screening Mammogram, [facility]. 09/24/2022 Bilateral MG 3D screening mammo w/cad, [facility]. 09/30/2022 Right MG 3D work up w/cad RT, [facility]. Tissue Density: There are scattered areas of fibroglandular density. Findings: Analyzed By CAD. There is no suspicious group of microcalcifications or new suspicious mass in either breast. Benign-appearing calcifications. Overall Assessment: Benign, BI-RAD 2 Management: Screening Mammogram of both breasts in 1 year. . Patient should continue monthly self-breast exams. A clinical breast exam by your physician is recommended on an annual basis. This exam should not preclude additional follow-up of suspicious palpable abnormalities. Note on Diamante scores and lifetime risk: 1. A Diamante score greater than 3% is considered moderate risk. If this is the case, consider specialist referral to assess eligibility for a risk reducing agent. 2. If overall lifetime risk for the development of breast cancer is 20% or higher, the patient may qualify for future screening with alternating mammogram and breast MRI. Electronically signed and approved by: Gaurang Cartagena M.D. Radiologis
== END | disposition home or self-care (01) ==
LOC: RADMAMWWP 13:50
PROVIDERS: ATTEND Family Medicine
DX: Z12.31 Encounter for screening mammogram for malignant neoplasm of breast (principal); Z78.0 Asymptomatic menopausal state
CPT/HCPCS: 77063; 77067

== ENCOUNTER 2024-03-19 19:23 | Emergency (ER) | payer MEDICARE, OTHER ==
--- NOTE | 2024-03-19 20:22 | ED ---
Fall HPI - General Chief Complaint: Fall Stated Complaint: Fall-R Side Pain Time Seen by Provider: 03/19/24 19:30 Source: patient, RN notes reviewed Mode of arrival: ambulatory Limitations: no limitations - History of Present Illness Initial Comments: 73-year-old female presents emergency department with chief complaint of right hip pain. She states that she was walking the parking lot after dropping off a friend to grab" when she tripped and fell onto her right hip. Complains of right hip pain but states that she was able to get up and walk on the right side but causes moderate discomfort. Patient denies any head injury loss conscious no other complaints. - Related Data Previous Rx's Medication Instructions Recorded amLODIPine [Norvasc] 10 mg PO DAILY #30 tablet 03/25/22 Allergies Allergy/AdvReac Type Severity Reaction Status Date / Time furosemide [From Lasix] Allergy Confusion Verified 03/19/24 19:28 Review of Systems ROS Statement: Those systems with pertinent positive or pertinent negative responses have been documented in the HPI. ROS Other: All systems not noted in ROS Statement are negative. Past Medical History Past Medical History: Diabetes Mellitus, Hypertension, Renal Disease, Thyroid Disorder Additional Past Medical History / Comment(s): renal insuff History of Any Multi-Drug Resistant Organisms: None Reported Past Surgical History: Cholecystectomy, Hysterectomy, Orthopedic Surgery Additional Past Surgical History / Comment(s): cervical fusion Past Psychological History: No Psychological Hx Reported Smoking Status: Never smoker Past Alcohol Use History: None Reported Past Drug Use History: None Reported General Exam Limitations: no limitations General appearance: alert, in no apparent distress Head exam: Present: atraumatic, normocephalic, normal inspection Eye exam: Present: normal appearance, PERRL, EOMI. Absent: scleral icterus, conjunctival injection, periorbital swelling Neck exam: Present: normal inspection. Absent: tenderness, meningismus, lymphadenopathy Respiratory exam: Present: normal lung sounds bilaterally. Absent: respiratory distress, wheezes, rales, rhonchi, stridor Cardiovascular Exam: Present: regular rate, normal rhythm, normal heart sounds. Absent: systolic murmur, diastolic murmur, rubs, gallop, clicks Extremities exam: Present: normal inspection, tenderness (Hip right ), normal capillary refill. Absent: full ROM, pedal edema, joint swelling, calf tenderness Course Vital Signs 03/19/24 19:26 Temperature 98.3 F Pulse Rate 56 L Respiratory 16 Rate Blood Pressure 166/75 O2 Sat by Pulse 99 Oximetry Medical Decision Making - Medical Decision Making Was pt. sent in by a medical professional or institution ([facility], UNIT MANAGER, urgent care, hospital, or intermediate...) When possible be specific @ -No Did you speak to anyone other than the patient for history (EMS, parent, family, police, friend...)? What history was obtained from this source @ -No Did you review nursing and triage notes (agree or disagree)? Why? @ -I reviewed and agree with nursing and triage notes Were old charts reviewed (outside hosp., previous admission, EMS record, old EKG, old radiological studies, urgent care reports/EKG's, intermediate records)? Report findings @ -No old charts were reviewed Differential Diagnosis (chest pain, altered mental status, abdominal pain women, abdominal pain men, vaginal bleeding, weakness, fever, dyspnea, syncope, headache, dizziness, GI bleed, back pain, seizure, CVA, palpatations, mental health, musculoskeletal)? @ -Fall, hip fracture, pelvic fracture EKG interpreted by me (3pts min.). @ -[None X-rays interpreted by me (1pt min.). @ -X-ray right hip with AP pelvis showing questionable acetabular fracture CT interpreted by me (1pt min.). @ -CT right hip showing 2 acetabular fractures roof posterior U/S interpreted by me (1pt. min.). @ -None done What testing was considered but not performed or refused? (CT, X-rays, U/S, labs)? Why? @ -None What meds were considered but not given or refused? Why? @ -None Did you discuss the management of the patient with other professionals (professionals i.e. [facility], UNIT MANAGER, lab, RT, psych nurse, social media senior associate, rn sane, teacher, workers' compensation hearings officer, disease case manager rn)? Give summary @ -Dr. Gibbs regarding CT findings recommends transfer to trauma Ortho. Case discussed with [facility] accepts transfer Was smoking cessation discussed for >3mins.? @ -No Was critical care preformed (if so, how long)? @ -No Were there social determinants of health that impacted care today? How? (Homelessness, low income, unemployed, alcoholism, drug addiction, transportation, low edu. Level, literacy, decrease access to med. care, [facility], rehab)? @ -No Was there de-escalation of care discussed even if they declined (Discuss DNR or withdrawal of care, Hospice)? DNR status @ -No What co-morbidities impacted this encounter? (DM, HTN, Smoking, COPD, CAD, Cancer, CVA, ARF, Chemo, Hep., AIDS, mental health diagnosis, sleep apnea, morbid obesity)? @ -None Was patient admitted / discharged? Hospital course, mention meds given and route, prescriptions, significant lab abnormalities, going to OR and other pertinent info. @ -Transferred patient has acetabular fracture x 2 patient was transferred to [facility] for trauma orthopedics. Undiagnosed new problem with uncertain prognosis? @ -No Drug Therapy requiring intensive monitoring for toxicity (Heparin, Nitro, Insulin, Cardizem)? @ -No Were any procedures done? @ -No Diagnosis/symptom? @ -Right acetabular fracture Acute, or Chronic, or Acute on Chronic? @ -Acute] Uncomplicated (without systemic symptoms) or Complicated (systemic symptoms)? @ -Complicated Side effects of treatment? @ -No Exacerbation, Progression, or Severe Exacerbation? @ -No Poses a threat to life or bodily function? How? (Chest pain, [place], [place], pneumonia, PE, COPD, DKA, ARF, appy, cholecystitis, CVA, Diverticulitis, Homicidal, Suicidal, threat to staff... and all critical care pts) @ -Yes surgical risk Disposition Clinical Impression: Fall, Right acetabular fracture Disposition: OTHER INSTITUTION NOT DEFINED Condition: Fair Referrals: Nilton Craven MD [Primary Care Provider] - 1-2 days Time of Disposition: 22:17 - Out of Hospital Transfer - Req. Specs Out of Hospital Transfer - Requested Specifics: Other Emergency Center ([facility])
--- NOTE | 2024-03-19 20:58 | XR ---
EXAMINATION TYPE: XR Hip 2 views RT and AP Pelvis DATE OF EXAM: 03/19/2024 COMPARISON: NONE HISTORY: 73-year-old female fall in parking lot, landed on right hip, pain FINDINGS: Exam limited by the degree of osteopenia. There is mild degenerative change of both hips. SI joints a ppear symmetric and intact as does the pubic symphysis. There appears to be a lucency projecting at t he right humeral head possibly reflecting a posterior acetabular wall fracture. No displaced fracture of the femoral neck or proximal right femur. IMPRESSION: Osteopenia. No displaced fracture is identified. However, there is some lucency projecting over the r ight femoral head that may reflect an underlying posterior acetabular wall fracture. [facility], , 03/19/2024 8:55 PM
--- NOTE | 2024-03-19 21:59 | CT ---
EXAMINATION TYPE: CT hip RT wo con DATE OF EXAM: 03/19/2024 COMPARISON: Radiograph same day HISTORY: 73-year-old female Fell in our parking lot when she was here to see someone else. Landed on right hip and is having a lot of pain. Denies head strike or LOC. No thinners. TECHNIQUE: Contiguous axial scanning of the right hip without IV contrast. Coronal and sagittal recon structions performed. CT DLP: 418.8 mGycm Automated exposure control for dose reduction was used. FINDINGS: [id number] degenerative change of the right hip. There is a nondisplaced intra-articular fractu re involving the posterior wall and roof of the acetabulum oriented in a vertical direction. No artic ular surface incongruity (or displacement. No additional acute fracture is identified. Numerous pelvic phleboliths and sigmoid diverticulosis. Suspect chronic hamstring avulsion injury giv en corticated bone fragments below the ischial tuberosity. No fracture of the proximal right femur is identified. IMPRESSION: 1. NONDISPLACED INTRA-ARTICULAR FRACTURE INVOLVING THE POSTERIOR WALL and roof of the acetabulum orie nted in a vertical direction. No articular surface step-off. 2. Underlying mild to moderate right hip OA. 3. Suspect chronic avulsion injury and tendinopathy at the right hamstrings origin. [facility], , 03/19/2024 9:57 PM
[2024-03-19 22:38] VITALS: BP 168/88; PULSE 59; RESP 18; TEMP 98
[2024-03-19] MEDS: ONDANSETRON 4 MG/2 ML VIAL IVP STA (22:57)
[2024-03-19] MEDS: HYDROmorphone 0.5 MG/0.5 ML SYRINGE IVP STA (22:59)
[2024-03-19 23:06] LABS: Basophils % (A) 0 %; Eosinophils # (A) 0.1 k/uL (0-0.7); Eosinophils % (A) 2 %; HCT 33.3 % (34.0-46.0); Lymphocytes % (A) 15 %; Mean Platelet Volume 6.8; Monocytes # (A) 0.5 k/uL (0-1.0); Monocytes % (A) 8 %; Neutrophils # (A) 4.8 k/uL (1.3-7.7); Neutrophils % (A) 73 %; Platelet Count 176 k/uL (150-450); RBC 3.66 m/uL (3.80-5.40); RDW 13.3 % (11.5-15.5); WBC 6.6 k/uL (3.8-10.6)
[2024-03-19 23:28] LABS: Prothrombin Time 10.7 sec (10.0-12.5)
[2024-03-19 23:38] LABS: ALT 19 U/L (4-34); AST 31 U/L (14-36); African American GFR (CKD) 31 (>60 ml/min/1.73 sqM); Albumin 4.7 g/dL (3.5-5.0); Alkaline Phosphatase 71 U/L (38-126); Anion Gap 7 mmol/L; Blood Urea Nitrogen 41 mg/dL (7-17); Calcium 9.8 mg/dL (8.4-10.2); Carbon Dioxide 22 mmol/L (22-30); Chloride 111 mmol/L (98-107); Glucose 105 mg/dL (74-99); Non-African American GFR(CKD) 27 (>60 ml/min/1.73 sqM); Potassium 4.8 mmol/L (3.5-5.1); Sodium 140 mmol/L (137-145); Total Bilirubin 0.8 mg/dL (0.2-1.3); Total Protein 6.9 g/dL (6.3-8.2)
== END 2024-03-19 23:07 | disposition other institution (70) ==
LOC: EC 19:23
CPT/HCPCS: 36415; 73502; 80053; 85025; 85610; 85730; 96374; 96375; 99285

== ENCOUNTER → 2024-09-11 | Outpatient (CLI) | payer MEDICARE, OTHER ==
[2024-09-11 14:18] LABS: Partial Thromboplastin Time 24.4 sec (22.0-30.0); Prothrombin Time 10.8 sec (10.0-12.5)
[2024-09-11 18:15] LABS: Basophils # (A) 0.03 X 10*3/uL (0.00-0.10); Basophils % (A) 0.6 %; Eosinophils # (A) 0.08 X 10*3/uL (0.04-0.35); Eosinophils % (A) 1.6 %; HCT 35.8 % (37.2-46.3); HGB 11.3 g/dL (12.0-15.0); Lymphocytes # (A) 0.83 X 10*3/uL (0.90-5.00); Lymphocytes % (A) 16.7 %; MCH 29.4 pg (27.0-32.0); MCHC 31.6 g/dL (32.0-37.0); MCV 93.2 FL (80.0-97.0); Monocytes # (A) 0.33 X 10*3/uL (0.20-1.00); Monocytes % (A) 6.6 %; NRBC Per 100 WBC 0 X 10*3/uL (0.00-0.01); Neutrophils # (A) 3.68 X 10*3/uL (1.80-7.70); Neutrophils % (A) 74.1 %; Platelet Count 165 X 10*3/uL (140-440); RBC 3.84 X 10*6/uL (4.10-5.20); RDW 12.3 % (11.5-14.5); WBC 4.97 X 10*3/uL (4.50-10.00)
[2024-09-11 19:22] LABS: ALT 19 U/L (8-44); AST 23 U/L (13-35); Albumin 4.4 g/dL (3.8-4.9); Alkaline Phosphatase 87 U/L (41-126); Blood Urea Nitrogen 37.8 mg/dL (9.0-27.0); Calcium 9.6 mg/dL (8.7-10.3); Carbon Dioxide 23.4 mmol/L (21.6-31.8); Chloride 108 mmol/L (96-109); Glucose 146 mg/dL (70-110); Magnesium 2.2 mg/dL (1.5-2.4); Phosphorus 4.2 mg/dL (2.4-5.1); Sodium 142 mmol/L (135-145); Total Bilirubin 0.3 mg/dL (0.3-1.2); Total Protein 6.4 g/dL (6.2-8.2)
[2024-09-11 19:23] LABS: T4, Free (Free Thyroxine) 1.38 ng/dL (0.80-1.80)
== END | disposition home or self-care (01) ==
LOC: LABPAT 13:10
PROVIDERS: ATTEND Nurse Practitioner Acute Care
DX: Z01.812 Encounter for preprocedural laboratory examination (principal); E11.22 Type 2 diabetes mellitus with diabetic chronic kidney disease; N18.4 Chronic kidney disease, stage 4 (severe); D63.1 Anemia in chronic kidney disease; E03.9 Hypothyroidism, unspecified; N25.81 Secondary hyperparathyroidism of renal origin; E55.9 Vitamin D deficiency, unspecified; R80.9 Proteinuria, unspecified
CPT/HCPCS: 80053; 82043; 82306; 82570; 83036; 83735; 83970; 84100; 84439; 84443; 84481; 85025; 85610; 85730

== ENCOUNTER 2024-09-18 08:15 | Day surgery (SDC) | payer MEDICARE, OTHER ==
--- NOTE | 2024-09-17 08:05 | P.HPOR ---
History of Present Illness H&P Date: 09/17/24 Chief Complaint: Left shoulder pain and weakness The patient is a 73-year-old female who presents with left shoulder pain and weakness for the past 5 years. She has a difficult time with any attempted overhead activity and at night. She has tried medications along with exercises and activity modifications without much relief. She notes daily pain that limits her. Review of Systems Per HPI Past Medical History Past Medical History: Diabetes Mellitus, Hypertension, Renal Disease, Thyroid Disorder Additional Past Medical History / Comment(s): renal insuff History of Any Multi-Drug Resistant Organisms: None Reported Past Surgical History: Cholecystectomy, Hysterectomy, Orthopedic Surgery Additional Past Surgical History / Comment(s): cervical fusion Past Psychological History: No Psychological Hx Reported Smoking Status: Never smoker Past Alcohol Use History: None Reported Past Drug Use History: None Reported Medications and Allergies Home Medications Medication Instructions Recorded Confirmed Type amLODIPine [Norvasc] 10 mg PO DAILY #30 tablet 03/25/22 Rx Allergies Allergy/AdvReac Type Severity Reaction Status Date / Time furosemide [From Lasix] Allergy Confusion Verified 03/19/24 19:28 Physical Examination - Shoulder left Appearance: effusion Tenderness with palpation: anterior, bicipital groove Pain: with abduction, with forward flexion ROM: forward flexion: 20 degrees ROM: internal rotation: 0 ROM: external rotation: 10 degrees Strength: abduction: 3/5 Strength: external rotation: 4/5 Tests: internal impingement tests: positive, external impingment tests: positive Results The patient is a well-developed well-nourished female approximately 4 foot 11, 156 pounds of mesomorphic habitus. HEENT exam is nonfocal, neck is supple. She is tender about the left anterior glenohumeral joint. Moderate crepitus is noted. Passively I am able to forward elevate her to 120 degrees. Impingement test, Neer test, and Speed test are positive. Her distal neurovascular exam appears intact in the left upper extremity. - Diagnostic results Shoulder x-ray: image reviewed (X-rays of the left shoulder obtained the office show severe glenohumeral joint osteoarthrosis with [id number] changes along with subchondral sclerosis. The humeral head to acromial distance appears to be diminished.) Assessment and Plan Assessment: Left rotator cuff arthropathy/glenohumeral joint osteoarthrosis Plan: I talked to the patient at length regarding her condition along with treatment options. At this point she is quite symptomatic having both pain and weakness despite conservative measures. After a thorough discussion she opts to proceed with surgery. We will plan to proceed with a reverse left total shoulder arthroplasty. Risks and benefits were discussed at length in layman's terms. We we will likely keep the patient for 23-hour hold postoperatively.
[~2024-09-18 08:15] MED LIST: HYDROmorphone 0.5 MG/0.5 ML SYRINGE IVP PRN; LIDOCAINE 1% (10MG/ML) FOR IV START INTRADERMA PRN; METOCLOPRAMIDE 5 MG/ML 2 ML VIAL IVP PRN; TRANEXAMIC 1,000 MG/100ML-NACL 1,000 MG in SALINE 1 100ML.BAG IVPB PRN; fentaNYL (PF) 50 MCG/ML 2 ML AMP IV PRN
[2024-09-18] MEDS: IV FLUID CONTINUATION 1,000 ML IV ONE (09:11)
[2024-09-18 09:15] LABS: Glucose,Whole Blood 127 mg/dL (70-110)
[2024-09-18] MEDS: MELOXICAM 7.5 MG TAB PO PRN (09:22)
[2024-09-18] MEDS: LACTATED RINGERS 1,000 ML IV SCH (09:22)
[2024-09-18] MEDS: ACETAMINOPHEN TAB 500 MG TAB PO PRN (09:22)
[2024-09-18] MEDS: ONDANSETRON 4 MG/2 ML VIAL IVP ONE (09:23)
[2024-09-18] MEDS: DEXAMETHASONE SOD PHOSPHATE 4 MG/ML 1 ML VIAL IV ONE (09:23)
[2024-09-18] MEDS: MIDAZOLAM 2 MG/2 ML VIAL IV ONE (09:42)
[2024-09-18] MEDS ORDERED: LIDOCAINE 1% INJ 10MG/ML (20 ML MDV) ONE (09:52)
[2024-09-18] MEDS ORDERED: ROPIVACAINE 5 MG/ML 30 ML VIAL ONE (09:52)
[2024-09-18] MEDS ORDERED: SUCCINYLCHOLINE CHLORIDE 200 MG/10 ML VIAL IV ONE (09:52)
[2024-09-18] MEDS ORDERED: ROCURONIUM 10 MG/ML (5 ML VIAL) IV ONE (09:52)
[2024-09-18] MEDS ORDERED: PROPOFOL 10 MG/ML 20 ML VIAL IV ONE (09:52)
[2024-09-18] MEDS ORDERED: PHENYLEPHRINE-0.9% NACL SYG 1,000 MCG/10 ML SYRINGE ONE (09:52)
[2024-09-18] MEDS ORDERED: DEXAMETHASONE SOD PHOSPHATE 4 MG/ML 1 ML VIAL ONE (09:52)
[2024-09-18] MEDS ORDERED: NEOSTIGMINE 1 MG/ML 10 ML VIAL ONE (09:52)
[2024-09-18] MEDS ORDERED: TRANEXAMIC 1,000 MG/100ML-NACL PREMIX BAG ONE (09:52)
[2024-09-18] MEDS ORDERED: GLYCOPYRROLATE 0.2 MG/ML 2 ML VIAL ONE (09:52)
[2024-09-18] MEDS: ceFAZolin 2 GM in DEXTROSE 5% IN WATER 50 ML IVPB PRN (09:57)
[2024-09-18] MEDS: ceFAZolin 1,000 MG in SODIUM CHLORIDE 0.9% 1,000 ML IRRIGATION ONE (10:28)
[2024-09-18] MEDS ORDERED: HYDROmorphone 0.5 MG/0.5 ML SYRINGE IVP PRN ×2 (11:40)
[2024-09-18] MEDS ORDERED: hydrOXYzine pamoate 25 MG CAP PO PRN (11:40)
[2024-09-18] MEDS ORDERED: SENNOSIDES-DOCUSATE SODIUM 1 EACH TAB PO PRN (11:40)
--- NOTE | 2024-09-18 12:06 | P.OP ---
Date of Procedure: 09/18/24 Preoperative Diagnosis: Severe left rotator cuff arthropathy/glenohumeral joint osteoarthrosis Postoperative Diagnosis: Same Procedure(s) Performed: Left reverse total shoulder arthroplasty Implants: Depuy Inhance size medium humeral baseplate, short stem, 32+4 articular surface, 32+4 glenosphere, 24 mm press-fit baseplate. [facility] Sur[facility]: Brock Gibbs Bill Sorter #1: Ralph Winters Estimated Blood Loss (ml): 100 Pathology: none sent Condition: stable Disposition: PACU Indications for Procedure: The patient is a 73-year-old female who presents with progressive left shoulder pain and weakness despite conservative measures. Clinically she does not have severe rotator cuff arthropathy with minimal function. A discussion of the risks and benefits of operative intervention versus continued conservative me asures was made with the patient. She opted to proceed with surgery. Operative risks include infection, neurovascular injury, development of blood clots, fracture, instability, and possible need for subsequent procedures was discussed. Informed consent was obtained. Operative Findings: As below Description of Procedure: The patient was brought to the operating room, and after induction of general anesthesia was placed in a beachchair position. The bony prominences were appropriately padded. I examined the left shoulder. There was moderate lack of passive forward elevation and external rotation. The left upper extremity was prepped and draped in normal fashion. The bony outlines the coracoid process, distal clavicle, and acromion were outlined with a skin marker. A pulse centimeter deltopectoral incision was made lateral to the coracoid process. Skin was incised sharply. Subcutaneous tissues were divided bluntly. Electrocautery was used for hemostasis. The cephalic vein was identified and gently retracted laterally with the deltoid. The deltopectoral was bluntly developed. Subdeltoid adhesions were then released. The self-retaining retractor was placed. The conjoined tendon was retracted medially and the deltoid laterally. The biceps was identified. Its sheath was opened. A biceps tenotomy was performed along the remaining tendon did retract distally. Pseudocapsule was excised. The head was then exposed. The shoulder was dislocated. The resection guide was then aligned with the bicipital groove. I planned on resection at the rotator cuff insertion. I planned on 20 of retroversion. The humeral head cut was then made. The bone was removed in one fragment. Residual inferomedial osteophytes were removed flush with the [place] cortical bone. The humeral baseplate sized most appropriately at a medium. A guidepin was then placed. The proximal humerus was then reamed to the appropriate level. A trial medium baseplate was placed and was fully seated. There was good stability. Attention was then paid towards preparing the glenoid. An anterior and posterior retractors placed. The labrum was released from the 6-12 o'clock position. Remaining biceps was removed as well. A guidepin was placed in the inferior aspect of the glenoid with the guide slightly tilting inferior. The reamer was used down to a bleeding bony surface. The 24 mm standard baseplate was inserted with good purchase. A central screw was placed with good purchase. Inferior, superior, and posterior locking screws the appropriate length were placed. Good purchase was obtained. The 34 mm +4 glenosphere was inserted over a guidewire. This was fully seated. Care was taken to avoid any soft tissue interposition. Attention was then paid towards preparing the proximal humerus. A short stem with a medium humeral baseplate was then inserted at 20 of retroversion. Trial reduction was obtained with a 34 mm + 4 articular surface. The shoulder was taken through range of motion. It was felt to be stable in flexion and extension with internal and external rotation. I felt there was adequate yarsanism of soft tissue tension and a lateral shuck test was performed. The shoulder was gently dislocated. The trial components were then removed. The 34 mm +4 articular surface was impacted. The shoulder again was gently reduced and taken through range of motion. Again it was felt to be stable in all planes. Pulsatile lavage was utilized. The subscapularis was a attached with #2 Ethibond suture. The deltopectoral interval was closed with interrupted 2-0 Vicryl sutures. The skin was reapproximated with 3-0 subcuticular Prolene suture. Steri-Strips were applied. A sterile dressing was applied. A sling was placed. The patient was awoken from general anesthesia and transferred to recovery room in good condition. Blood loss was estimated at 100 mL. No complications were incurred. Sponge and needle counts were correct at the end the case. Ralph HERNANDEZ assisted during the major components of the case to include exposure, glenoid and humeral preparation, implantation, and closure.
--- NOTE | 2024-09-18 12:30 | XR ---
EXAMINATION TYPE: XR shoulder limited LT DATE OF EXAM: 09/18/2024 12:25 PM INDICATION: Patient age:Female; 73 years old; Reason for study: Status post reverse left total shoulder arthroplas; pain COMPARISON: Chest radiograph 07/30/2020 TECHNIQUE: The left shoulder was examined in single AP projection. FINDINGS: Postsurgical changes from reverse left total shoulder arthroplasty. Hardware appears intact with appr opriate alignment. There is associated soft tissue gas and edema. Mild AC joint arthropathy. No acute fracture or dislocation. IMPRESSION: Postsurgical changes from reverse left total shoulder arthroplasty. Hardware appears intact with appr opriate alignment. [facility], , 09/18/2024 12:28 PM
--- NOTE | 2024-09-18 14:34 | P.CONS ---
History of Present Illness - Reason for Consult Consult date: 09/18/24 Medical management - Chief Complaint Left shoulder arthroplasty - History of Present Illness Patient is a 73-year-old female with a past medical history of hypertension, hyperemia, diabetes type 2 [id number], hypothyroidism. Patient was admitted to the hospital for elective left shoulder surgery. Patient is status post left shoulder arthroplasty. Patient does have severe left rotator cuff arthropathy and chronic pain, failed conservative measures. Currently denies any complaints of worsening pain. No nausea vomiting. No chest pain or shortness of breath. Patient has been afebrile. Patient's blood pressure was 146/74 pulse 53 respiration 18 and pulse ox 96% on room air. L aboratory data showed WBC 4.3 hemoglobin 10.4 and platelets 109. Blood sugar was 244. Review of Systems Constitutional: Patient denies any fever or chills . No generalized weakness or weight loss. Abdomen: Patient denied nausea vomiting and diarrhea and abdominal pain. Cardiovascular: Patient denies any chest pain or short of breath no palpitations. Respiratory: patient denied any cough or sputum production. No shortness of breath Neurologic: Patient denied any numbness or tingling. no headache. Musculoskeletal: Patient denies any complaints of joint swelling or deformity. Skin: Negative Psychiatric: Negative Endocrine: No heat or cold intolerance. No recent weight gain. Genitourinary: No dysuria or hematuria. All other 14 point ROS negative except the above Past Medical History Past Medical History: Diabetes Mellitus, Hyperlipidemia, Hypertension, Renal Disease, Thyroid Disorder Additional Past Medical History / Comment(s): renal insuff History of Any Multi-Drug Resistant Organisms: None Reported Past Surgical History: Cholecystectomy, Hysterectomy, Orthopedic Surgery Additional Past Surgical History / Comment(s): cervical fusion, ganglion cycst claudia carpal tunel Past Anesthesia/Blood Transfusion Reactions: No Reported Reaction Past Psychological History: No Psychological Hx Reported Smoking Status: Never smoker Past Alcohol Use History: None Reported Past Drug Use History: None Reported - Past Family History Father Family Medical History: No Reported History Medications and Allergies Home Medications Medication Instructions Recorded Confirmed Type amLODIPine [Norvasc] 10 mg PO DAILY #30 tablet 03/25/22 09/17/24 Rx Atorvastatin [Lipitor] 20 mg PO HS 09/17/24 09/18/24 History Empagliflozin [Jardiance] 10 mg PO DAILY 09/17/24 09/17/24 History Gabapentin [Neurontin] 400 mg PO DAILY 09/17/24 09/17/24 History Levothyroxine Sodium [Synthroid] 88 mcg PO DAILY 09/17/24 09/17/24 History Sertraline [Zoloft] 100 mg PO DAILY 09/17/24 09/17/24 History lisinopriL [Zestril] 10 mg PO DAILY 09/17/24 09/17/24 History sitaGLIPtin [Januvia] 25 mg PO DAILY 09/17/24 09/17/24 History Allergies Allergy/AdvReac Type Severity Reaction Status Date / Time furosemide [From Lasix] Allergy Confusion Verified 09/18/24 08:37 Physical Exam Vitals: Vital Signs Temp Pulse Resp BP Pulse Ox 09/18/24 13:16 97.8 F 53 L 18 146/74 96 09/18/24 12:45 59 L 16 140/75 94 L 09/18/24 12:30 59 L 16 149/77 95 09/18/24 12:15 58 L 16 164/73 95 09/18/24 12:00 97.6 F 72 14 175/85 99 09/18/24 09:53 72 16 144/69 96 09/18/24 08:36 98.2 F 81 16 178/93 95 Intake and Output 09/17/24 09/18/24 09/18/24 22:59 06:59 14:59 Intake Total 1001 Output Total 100 Balance 901 Intake: IV 1001 Output: Estimated Blood Loss 100 Other: # Voids 1 Weight 69.9 kg PHYSICAL EXAMINATION: Patient is lying in the bed comfortably, no acute distress, awake alert and oriented.. HEENT: Normocephalic. Neck is supple. Pupils reactive. Nostrils clear. Oral cavity is moist. Neck reveals no JVD, carotid bruits, or thyromegaly. CHEST EXAMINATION: Trachea is central. Symmetrical expansion. Lung cedeno clear to auscultation and percussion. CARDIAC: Normal S1, S2 with no gallops. No murmurs ABDOMEN: Soft. Bowel sounds normal. No organomegaly. No abdominal bruits. Extremities: reveal no edema. No clubbing or cyanosis. Left shoulder surgical site bandaged. Sling in place. Neurologically awake, alert, oriented x3 with well-coordinated movements. No focal deficits noted Skin: No rash or skin lesions. Psychiatric: Coperative. Nonsuicidal Musculoskeletal: No joint swelling or deformity. Normal range of motion. Results CBC & Chem 7: 09/18/24 19:54 Labs: Abnormal Lab Results - Last 24 Hours (Table) 09/18/24 Range/Units 09:09 POC Glucose (mg/dL) 127 H (70-110) mg/dL Assessment and Plan Assessment: Status post left total arthroplasty postoperative day 0 Hypertension uncontrolled Hyperglycemia with diabetes type 2 nausea and dependent Hyperlipidemia Hypothyroidism DVT prophylaxis as per primary team Plan: Patient will be continued on pain management, bowel regimen and encourage incentive spirometry. Patient was started back on home blood pressure medication including Norvasc and lisinopril. Continue with insulin sliding scale for blood pressure blood sugar control. Follow-up CBC BMP and A1c. Continue to monitor H&H. PT OT will be consulted. Continue with home medications. Further recommendations based on clinical course. Thank you kindly for your consult.
--- NOTE | 2024-09-18 14:44 | P.ANPRN ---
Procedure Note - Anesthesia - Nerve Block Performed Left Interscalene Single Time Out Performed: Yes Date of Procedure: 09/18/24 Procedure Start Time: :42 Procedure Stop Time: :46 Location of Patient: PreOp Indication: Acute Post-Operative Pain, Requested by Surgeon Sedation Type: Sedate with meaningful contact maintained Preparation: Sterile Prep Position: Supine Needle Types: Pajunk Needle Gauge: 21 Ultrasound used to visualize needle placement: Yes Ultrasound used to observe medication spread: Yes Blood Aspirated: No Pain Paresthesia on Injection Noted: No Resistance on Injection: Normal Image Stored and Saved: Yes Events: Uneventful and Well Tolerated (Ropivacaine 0.5% 15 cc plus dexamethasone 4 mg)
[2024-09-18] MEDS: amLODIPine 10 MG TAB PO SCH (14:56)
[2024-09-18 16:52] LABS: Glucose,Whole Blood 244 mg/dL (70-110)
[2024-09-18] MEDS: ceFAZolin 2 GM in DEXTROSE 5% IN WATER 50 ML IVPB SCH (17:11)
[2024-09-18] MEDS: ATORVASTATIN 20 MG TAB PO SCH (19:22)
[2024-09-18 20:08] LABS: Glucose,Whole Blood 217 mg/dL (70-110)
[2024-09-18 20:09] LABS: Basophils # (A) 0.01 10*3/uL (0.00-0.10); Basophils % (A) 0.2 %; HCT 30.7 % (37.2-46.3); HGB 10.4 g/dL (12.0-15.0); Lymphocytes # (A) 0.39 10*3/uL (0.90-5.00); Lymphocytes % (A) 8.9 %; MCHC 33.9 g/dL (32.0-37.0); MCV 91.4 fL (80.0-97.0); Mean Platelet Volume 10.2 fL (9.5-12.2); Monocytes # (A) 0.36 10*3/uL (0.20-1.00); Monocytes % (A) 8.2 %; Neutrophils % (A) 82.5 %; Platelet Count 109 10*3/uL (140-440); RBC 3.36 10*6/uL (4.10-5.20); RDW 12.2 % (11.5-14.5); WBC 4.37 10*3/uL (4.50-10.00)
[2024-09-18] MEDS ORDERED: DEXTROSE 50% SYRINGE 50 ML IVP PRN ×2 (20:29)
[2024-09-18] MEDS: HYDROcodone/APAP 5-325MG 1 EACH TAB PO PRN (22:23)
[2024-09-18] MEDS: INSULIN LISPRO (HumaLOG) 100 UNIT/ML 10 mL VL SQ SCH (22:24)
[2024-09-19] MEDS: HYDROcodone/APAP 5-325MG 1 EACH TAB PO PRN (05:01)
[2024-09-19 06:13] LABS: Glucose,Whole Blood 124 mg/dL (70-110)
[2024-09-19] MEDS: LEVOTHYROXINE 88 MCG TAB PO SCH (06:48)
[2024-09-19 07:17] VITALS: BP 134/69; PULSE 63; RESP 18; TEMP 98.4
[2024-09-19] MEDS: SERTRALINE 100 MG TAB PO SCH (08:08)
[2024-09-19] MEDS: LINAGLIPTIN 5 MG TABLET PO SCH (08:08)
[2024-09-19] MEDS: ASPIRIN 81 MG PO SCH (08:08)
[2024-09-19] MEDS: DAPAGLIFLOZIN PROPANEDIOL 5 MG TABLET PO SCH (08:08)
[2024-09-19] MEDS: lisinopriL 10 MG TAB PO SCH (08:08)
[2024-09-19 08:39] LABS: Basophils # (A) 0.02 X 10*3/uL (0.00-0.10); Basophils % (A) 0.4 %; Eosinophils # (A) 0.01 X 10*3/uL (0.04-0.35); Eosinophils % (A) 0.2 %; HCT 30.2 % (37.2-46.3); HGB 9.9 g/dL (12.0-15.0); Lymphocytes % (A) 15.3 %; MCH 30.3 pg (27.0-32.0); MCHC 32.8 g/dL (32.0-37.0); MCV 92.4 FL (80.0-97.0); Mean Platelet Volume 10.4 FL (9.5-12.2); Monocytes % (A) 13.1 %; NRBC Per 100 WBC 0 X 10*3/uL (0.00-0.01); Neutrophils # (A) 3.22 X 10*3/uL (1.80-7.70); Neutrophils % (A) 70.3 %; Platelet Count 120 X 10*3/uL (140-440); RBC 3.27 X 10*6/uL (4.10-5.20); RDW 12.2 % (11.5-14.5); WBC 4.58 X 10*3/uL (4.50-10.00)
[2024-09-19 08:47] LABS: BUN/Creat Ratio 16.43 Ratio (12.00-20.00); Blood Urea Nitrogen 34.5 mg/dL (9.0-27.0); Chloride 105 mmol/L (96-109); Glucose 122 mg/dL (70-110); Potassium 4.3 mmol/L (3.5-5.5); Sodium 137 mmol/L (135-145)
[2024-09-19 08:48] LABS: Calcium 8.5 mg/dL (8.7-10.3); Carbon Dioxide 19.6 mmol/L (21.6-31.8)
[2024-09-19 10:55] LABS: Glucose,Whole Blood 202 mg/dL (70-110)
--- NOTE | 2024-09-19 10:55 | P.PN ---
Subjective Patient is a 73-year-old female with a past medical history of hypertension, hyperemia, diabetes type 2 [id number], hypothyroidism. Patient was admitted to the hospital for elective left shoulder surgery. Patient is status post left shoulder arthroplasty. Patient does have severe left rotator cuff arthropathy and chronic pain, failed conservative measures. Currently denies any complaints of worsening pain. No nausea vomiting. No chest pain or shortness of breath. Patient has been afebrile. Patient's blood pressure was 146/74 pulse 53 respiration 18 and pulse ox 96% on room air. Laboratory data showed WBC 4.3 hemoglobin 10.4 and platelets 109. Blood sugar was 244. 09/19 Patient clinically doing well, mentation at baseline, pain in her left shoulder is controlled with dressing in place. She denies chest pain or dyspnea. No other new GI/ symptoms. No headache dizziness. Patient denies any bleeding. She was informed about her problem of low hemoglobin and platelet count, she is aware with recommendation for close outpatient follow-up and she agrees. Patient states that she expects to go home today. She is hemodynamically stable and afebrile. WBC is improved up to 4.8. Hemoglobin is slightly less than 0.4 down to 9.9 which could be postoperative expected. Platelet count is low for the first time but is improving 104 up to 120 today. Creatinine stable at 2.1 with baseline 1.9-2.1. Hemoglobin A1c is controlled 6.7% Objective - Vital Signs Vital signs: Vital Signs Temp 98.4 F 09/19/24 06:37 Pulse 63 09/19/24 06:37 Resp 18 09/19/24 06:37 BP 134/69 09/19/24 06:37 Pulse Ox 97 09/19/24 06:37 FiO2 Intake & Output 09/18/24 09/19/24 09/19/24 18:59 06:59 18:59 Intake Total 1001 520 Output Total 100 Balance 901 520 Weight 69.9 kg Intake: IV 1001 Oral 520 Output: Estimated Blood Loss 100 Other: Voiding Method Toilet Toilet # Voids 1 3 - Exam GENERAL: The patient is alert and oriented x3, not in any acute distress. Well developed, well nourished. HEENT: Pupils are round and equally reacting to light. EOMI. No scleral icterus. No conjunctival pallor. Normocephalic, atraumatic. No pharyngeal erythema. No t hyromegaly. CARDIOVASCULAR: S1 and S2 present. No murmurs, rubs, or gallops. PULMONARY: Chest is clear to auscultation, no wheezing , no crackles. ABDOMEN: Soft, nontender, nondistended, normoactive bowel sounds. No palpable organomegaly. -MUSCULOSKELETAL: No joint swelling or deformity. Left shoulder surgical wound with dressing in place, rest of exam is deferred to surgery team EXTREMITIES: No cyanosis, clubbing, or pedal edema. NEUROLOGICAL: Gross neurological examination did not reveal any focal deficits. SKIN: No rashes. no petechiae. - Labs CBC & Chem 7: 09/19/24 03:07 09/19/24 03:07 Labs: Abnormal Lab Results - Last 24 Hours (Table) 09/18/24 09/18/24 09/18/24 Range/Units 16:50 19:54 19:54 WBC 4.37 L (4.50-10.00) 10*3/uL RBC 3.36 L (4.10-5.20) 10*6/uL Hgb 10.4 L (12.0-15.0) g/dL Hct 30.7 L (37.2-46.3) % Plt Count 109 L (140-440) 10*3/uL Lymphocytes # 0.39 L (0.90-5.00) 10*3/uL Eosinophils # 0.00 L (0.04-0.35) 10*3/uL Carbon Dioxide (21.6-31.8) mmol/L Anion Gap (4.00-12.00) mmol/L BUN (9.0-27.0) mg/dL Creatinine (0.6-1.5) mg/dL Est GFR (CKD-EPI) (>=60) Glucose (70-110) mg/dL POC Glucose (mg/dL) 244 H (70-110) mg/dL Hemoglobin A1c 6.7 H (<=6.0) % Calcium (8.7-10.3) mg/dL 09/18/24 09/19/24 09/19/24 Range/Units 20:07 03:07 03:07 WBC (4.50-10.00) 10*3/uL RBC 3.27 L (4.10-5.20) 10*6/uL Hgb 9.9 L (12.0-15.0) g/dL Hct 30.2 L (37.2-46.3) % Plt Count 120 L (140-440) 10*3/uL Lymphocytes # 0.70 L (0.90-5.00) 10*3/uL Eosinophils # 0.01 L (0.04-0.35) 10*3/uL Carbon Dioxide 19.6 L (21.6-31.8) mmol/L Anion Gap 12.40 H (4.00-12.00) mmol/L BUN 34.5 H (9.0-27.0) mg/dL Creatinine 2.1 H (0.6-1.5) mg/dL Est GFR (CKD-EPI) 24 L (>=60) Glucose 122 H (70-110) mg/dL POC Glucose (mg/dL) 217 H (70-110) mg/dL Hemoglobin A1c (<=6.0) % Calcium 8.5 L (8.7-10.3) mg/dL 09/19/24 Range/Units 06:12 WBC (4.50-10.00) 10*3/uL RBC (4.10-5.20) 10*6/uL Hgb (12.0-15.0) g/dL Hct (37.2-46.3) % Plt Count (140-440) 10*3/uL Lymphocytes # (0.90-5.00) 10*3/uL Eosinophils # (0.04-0.35) 10*3/uL Carbon Dioxide (21.6-31.8) mmol/L Anion Gap (4.00-12.00) mmol/L BUN (9.0-27.0) mg/dL Creatinine (0.6-1.5) mg/dL Est GFR (CKD-EPI) (>=60) Glucose (70-110) mg/dL POC Glucose (mg/dL) 124 H (70-110) mg/dL Hemoglobin A1c (<=6.0) % Calcium (8.7-10.3) mg/dL Assessment and Plan Assessment: Status post left total arthroplasty postoperative day 0 Hypertension uncontrolled Hyperglycemia with diabetes type 2 nausea and dependent Hyperlipidemia Hypothyroidism. Plan: Pain was controlled Continue monitoring CBC including hemoglobin and platelet count although the improvement. No evidence of bleeding Clinically stable, recommend patient follow-up with PCP and medical management trainer in 1 week after discharge Resume home medication PT/OT evaluation Prognosis guarded Thank you for consulting us
--- NOTE | 2024-09-19 11:54 | P.DS ---
Providers Date of admission: 09/18/2024 Expected date of discharge: 09/19/24 Attending physician: Brock Gibbs Consults: 09/18/24 11:40 Consult Physician Routine Consulting Provider: Marcelina Weston Consult Reason/Comments: medical management status post reverse left total shoulder arthroplasty Do you want consulting provider notified?: Yes Primary care physician: Nilton Craven Hospital Course: Date of admission: 09/18/2024 Date of discharge: 09/19/2024 Admission diagnosis: Left severe glenohumeral joint osteoarthrosis Discharge diagnosis: Same Attending physician: Dr. Gibbs Surgical procedures: Reverse left total shoulder arthroplasty Brief history: Patient is a 73-year-old female with a history of severe left glenohumeral joint osteoarthrosis. At this point patient has failed conservative treatment measures and has opted to proceed with a elective reverse left total shoulder arthroplasty. Hospital course: Details of patient's surgery can be found in operative report. Patient tolerated the procedure well and was subsequently transported to orthopedic floor. Patient's orthopeidc and medical care was provided daily. Patient had daily laboratory tests performed for evaluation of overall blood counts. Patient had daily physical therapy to include strengthening range of motion as well as education with walker ambulation. Patient was treated with aspirin for their postoperative DVT prophylaxis during their inpatient stay. Patient was noted to have a relatively uneventful postoperative course. Patient reported satisfactory pain control with oral pain medications by postoperative day 1. Patient showed satisfactory progress with physical therapy. Patient moved steadily through the program and had no difficulty meeting the goals by postoperative day 1. Given patient's otherwise satisfactory course and having met physical therapy goals, plan is to discharge patient home on postoperative day 1. Discharge condition/disposition: Patient will be discharged home in stable condition. Discharge medications: Instructions are given on resumption of patient's normal daily medications per primary care recommendation, in addition patient will be prescribed [place]; take aspirin 81 mg twice daily at home for DVT prophylaxis. Orthopedic Discharge Instructions: 1. Wound care and infection precautions, keep incision dry and covered while showering, no lotions, creams, moisturizers. No soaking, pools, hot tubs. Do not scrub over incision. 2. Nonweightbearing right upper extremity until follow-up. 3. Ice when necessary. Do not exceed 20 minutes per hour with ice pack. 4. Utilize sling to right upper extremity until seen at first follow up appointment. 5. Pain meds and anticoagulants per prescription. 6. Pain medication has potential to cause constipation. Increase oral fluid and fiber intake. Contact primary care provider if you have not had a bowel movement within 48 hours after discharge. 7. No anti-inflammatory medication until discussed at first post operative visit, this including Motrin, Aleve, Mobic, Diclofenac. 8. Follow up in office at 2 weeks postop with Familia Cerna PA-C / Ralph Winters PA-C 9. Follow up with your primary care doctor 7-10 days after discharge. 10. Contact [facility] with any questions, . Keep incision clean, dry, intact. While showering, cover steri-strips with Saran wrap. Keep fusion tape on until follow-up appointment in office in 2 weeks. Assessment: Left severe glenohumeral joint osteoarthrosis Procedures: Reverse left total shoulder arthroplasty Patient Condition at Discharge: Good Plan - Discharge Summary Discharge Rx Participant: No New Discharge Prescriptions: New HYDROcodone/APAP 5-325MG [[place]wood 5-325] 1 - 2 tab PO Q6HR PRN #32 tab PRN Reason: Pain No Action amLODIPine [Norvasc] 10 mg PO DAILY #30 tablet Levothyroxine Sodium [Synthroid] 88 mcg PO DAILY Empagliflozin [Jardiance] 10 mg PO DAILY Atorvastatin [Lipitor] 20 mg PO HS Sertraline [Zoloft] 100 mg PO DAILY sitaGLIPtin [Januvia] 25 mg PO DAILY lisinopriL [Zestril] 10 mg PO DAILY Gabapentin [Neurontin] 400 mg PO DAILY Discharge Medication List amLODIPine [Norvasc] 10 mg PO DAILY #30 tablet 03/25/22 [Rx] Atorvastatin [Lipitor] 20 mg PO HS 09/17/24 [History] Empagliflozin [Jardiance] 10 mg PO DAILY 09/17/24 [History] Gabapentin [Neurontin] 400 mg PO DAILY 09/17/24 [History] Levothyroxine Sodium [Synthroid] 88 mcg PO DAILY 09/17/24 [History] Sertraline [Zoloft] 100 mg PO DAILY 09/17/24 [History] lisinopriL [Zestril] 10 mg PO DAILY 09/17/24 [History] sitaGLIPtin [Januvia] 25 mg PO DAILY 09/17/24 [History] HYDROcodone/APAP 5-325MG [[place]wood 5-325] 1 - 2 tab PO Q6HR PRN #32 tab 09/19/24 [Rx] Follow up Appointment(s)/Referral(s): Franco Hahn [STAFF PHYSICIAN] - 10 Days (Blood disease DrAna Paula) Ralph Winters, MARIO [PHYSICIAN PATIENT SERVICES MANAGER] - 2 Weeks Nilton Craven MD [Primary Care Provider] - 1 Week Jeffry Garsia DO [STAFF PHYSICIAN] - 1 Week Patient Instructions/Handouts: Shoulder Arthroplasty (GEN) Activity/Diet/Wound Care/Special Instructions: Orthopedic Discharge Instructions: 1. Wound care and infection precautions, keep incision dry and covered while showering, no lotions, creams, moisturizers. No soaking, pools, hot tubs. Do not scrub over incision. 2. Nonweightbearing right upper extremity until follow-up. 3. Ice when necessary. Do not exceed 20 minutes per hour with ice pack. 4. Utilize sling to right upper extremity until seen at first follow up appointment. 5. Pain meds and anticoagulants per prescription. 6. Pain medication has potential to cause constipation. Increase oral fluid and fiber intake. Contact primary care provider if you have not had a bowel movement within 48 hours after discharge. 7. No anti-inflammatory medication until discussed at first post operative visit, this including Motrin, Aleve, Mobic, Diclofenac. 8. Follow up in office at 2 weeks postop with Familia Cerna PA-C / Ralph Winters PA-C 9. Follow up with your primary care doctor 7-10 days after discharge. 10. Contact [facility] with any questions, . Keep incision clean, dry, intact. While showering, cover steri-strips with Saran wrap. Keep fusion tape on until follow-up appointment in office in 2 weeks. Take aspirin 81 mg twice daily for DVT prophylaxis Discharge Disposition: HOME SELF-CARE
--- NOTE | 2024-09-19 11:57 | P.PN ---
Subjective Progress Note Date: 09/19/24 Principal diagnosis: Severe left glenohumeral joint osteoarthrosis Objective - Vital Signs Vital signs: Vital Signs Temp 98.4 F 09/19/24 06:37 Pulse 63 09/19/24 06:37 Resp 18 09/19/24 06:37 BP 134/69 09/19/24 06:37 Pulse Ox 97 09/19/24 06:37 FiO2 Intake & Output 09/18/24 09/19/24 09/19/24 18:59 06:59 18:59 Intake Total 1001 520 Output Total 100 Balance 901 520 Weight 69.9 kg Intake: IV 1001 Oral 520 Output: Estimated Blood Loss 100 Other: Voiding Method Toilet Toilet # Voids 1 3 - Exam Left shoulder: Incision is clean, dry, and intact. The bulky dressing is in good condition. Incision appears to be healing well. Steri-Strips in place there is minimal soft tissue swelling and ecchymosis surrounding the medial and lateral aspects of the incision. Calf is soft, no tenderness with palpation. Plantar flexion, dorsiflexion, EHL, FHL are intact. Sensory exam to light touch throughout the extremity is intact, dorsal pedis pulses 2+. - Labs CBC & Chem 7: 09/19/24 03:07 09/19/24 03:07 Labs: Abnormal Lab Results - Last 24 Hours (Table) 09/18/24 09/18/24 09/18/24 Range/Units 16:50 19:54 19:54 WBC 4.37 L (4.50-10.00) 10*3/uL RBC 3.36 L (4.10-5.20) 10*6/uL Hgb 10.4 L (12.0-15.0) g/dL Hct 30.7 L (37.2-46.3) % Plt Count 109 L (140-440) 10*3/uL Lymphocytes # 0.39 L (0.90-5.00) 10*3/uL Eosinophils # 0.00 L (0.04-0.35) 10*3/uL Carbon Dioxide (21.6-31.8) mmol/L Anion Gap (4.00-12.00) mmol/L BUN (9.0-27.0) mg/dL Creatinine (0.6-1.5) mg/dL Est GFR (CKD-EPI) (>=60) Glucose (70-110) mg/dL POC Glucose (mg/dL) 244 H (70-110) mg/dL Hemoglobin A1c 6.7 H (<=6.0) % Calcium (8.7-10.3) mg/dL 09/18/24 09/19/24 09/19/24 Range/Units 20:07 03:07 03:07 WBC (4.50-10.00) 10*3/uL RBC 3.27 L (4.10-5.20) 10*6/uL Hgb 9.9 L (12.0-15.0) g/dL Hct 30.2 L (37.2-46.3) % Plt Count 120 L (140-440) 10*3/uL Lymphocytes # 0.70 L (0.90-5.00) 10*3/uL Eosinophils # 0.01 L (0.04-0.35) 10*3/uL Carbon Dioxide 19.6 L (21.6-31.8) mmol/L Anion Gap 12.40 H (4.00-12.00) mmol/L BUN 34.5 H (9.0-27.0) mg/dL Creatinine 2.1 H (0.6-1.5) mg/dL Est GFR (CKD-EPI) 24 L (>=60) Glucose 122 H (70-110) mg/dL POC Glucose (mg/dL) 217 H (70-110) mg/dL Hemoglobin A1c (<=6.0) % Calcium 8.5 L (8.7-10.3) mg/dL 09/19/24 09/19/24 Range/Units 06:12 10:52 WBC (4.50-10.00) 10*3/uL RBC (4.10-5.20) 10*6/uL Hgb (12.0-15.0) g/dL Hct (37.2-46.3) % Plt Count (140-440) 10*3/uL Lymphocytes # (0.90-5.00) 10*3/uL Eosinophils # (0.04-0.35) 10*3/uL Carbon Dioxide (21.6-31.8) mmol/L Anion Gap (4.00-12.00) mmol/L BUN (9.0-27.0) mg/dL Creatinine (0.6-1.5) mg/dL Est GFR (CKD-EPI) (>=60) Glucose (70-110) mg/dL POC Glucose (mg/dL) 124 H 202 H (70-110) mg/dL Hemoglobin A1c (<=6.0) % Calcium (8.7-10.3) mg/dL Assessment and Plan Assessment: 1. Left severe glenohumeral joint osteoarthrosis -Postop day 1 status post reverse left total shoulder arthroplasty Plan: 1. Severe left glenohumeral joint osteoarthrosis -reverse left total shoulder arthroplasty from yesterday, 09/18/2024. Patient stable at bedside this morning. Pain medication as needed. Sling present to left upper extremity. Discharge home today 2. Appreciate medical management 3. Pain management -[place] 4. DVT prophylaxis -aspirin 81 mg twice daily 5. GI prophylaxis -[place] 6. PT/OT -nonweightbearing left upper extremity. Maintain in sling 7. Encourage incentive spirometer use 8. Discharge planning -discharge home today Time with Patient: Less than 30
== END 2024-09-19 13:29 | disposition home or self-care (01) ==
LOC: OR 08:15 → 4SSUR 11:40 → OR 09-19 13:29
PROVIDERS: ATTEND Orthopaedic Surgery
DX: M19.012 Primary osteoarthritis, left shoulder (principal); I10 Essential (primary) hypertension; E11.65 Type 2 diabetes mellitus with hyperglycemia; E03.9 Hypothyroidism, unspecified; Z90.49 Acquired absence of other specified parts of digestive tract; Z90.710 Acquired absence of both cervix and uterus; Z96.612 Presence of left artificial shoulder joint; Z88.8 Allergy status to other drugs, medicaments and biological substances; Z79.84 Long term (current) use of oral hypoglycemic drugs; Z79.02 Long term (current) use of antithrombotics/antiplatelets; Z79.890 Hormone replacement therapy; Z79.899 Other long term (current) drug therapy
CPT/HCPCS: 80048; 85025 ×2; 83036; 73020; 23472; 64415; J2250; J1100; J0690 ×3; J2405

== ENCOUNTER 2024-10-31 18:33 | Inpatient (IN) | payer MEDICARE, OTHER ==
--- NOTE | 2024-10-31 19:01 | ED ---
General Adult HPI - General Chief complaint: Recheck/Abnormal Lab/Rx Stated complaint: abn labs Time Seen by Provider: 10/31/24 18:45 Source: EMS, RN notes reviewed, old records reviewed Limitations: no limitations - History of Present Illness Initial comments: This is a 74-year-old female who presents to the emergency department from a intermediate. Patient states she is in the intermediate and needed blood work and her hemoglobin 6.8 so they sent her to the emergency department. Patient states she is not lightheaded she is not dizzy she is not short of breath she does not have chest pain or palpitations. Patient denies any black or bloody stools. Patient denies any history of anemia. - Related Data Home Medications Medication Instructions Recorded Confirmed Atorvastatin [Lipitor] 20 mg PO DAILY 09/17/24 10/12/24 Gabapentin [Neurontin] 400 mg PO HS 09/17/24 10/12/24 Sertraline [Zoloft] 200 mg PO DAILY 09/17/24 10/12/24 sitaGLIPtin [Januvia] 25 mg PO DAILY 09/17/24 10/12/24 Acetaminophen [Tylenol] 975 mg PO Q6H PRN 10/12/24 10/12/24 Levothyroxine Sodium [Synthroid] 75 mcg PO [id number] 10/12/24 10/12/24 Levothyroxine Sodium [Synthroid] 100 mcg PO MOTH 10/12/24 10/12/24 amLODIPine [Norvasc] 5 mg PO DAILY 10/12/24 10/12/24 Previous Rx's Medication Instructions Recorded Aspirin 81 mg PO DAILY #30 tab 10/20/24 Ciprofloxacin HCl [Cipro] 250 mg PO Q12HR 9 Days #18 tab 10/20/24 HYDROcodone/APAP 5-325MG [[place]ris 1 tab PO Q6HR PRN 3 Days #12 tab 10/20/24 5-325] INSULIN LISPRO (HumaLOG) [HumaLOG] 0 unit SQ ACHS each 10/20/24 Metoprolol Succinate (ER) [Toprol 25 mg PO DAILY 30 Days #30 tab 10/20/24 XL] Allergies Allergy/AdvReac Type Severity Reaction Status Date / Time furosemide [From Lasix] Allergy Confusion Verified 10/31/24 18:43 Review of Systems ROS Statement: Those systems with pertinent positive or pertinent negative responses have been documented in the HPI. ROS Other: All systems not noted in ROS Statement are negative. Past Medical History Past Medical History: Diabetes Mellitus, Hypertension, Renal Disease, Thyroid Disorder Additional Past Medical History / Comment(s): renal insuff History of Any Multi-Drug Resistant Organisms: None Reported Past Surgical History: Cholecystectomy, Hysterectomy, Orthopedic Surgery Additional Past Surgical History / Comment(s): cervical fusion Past Anesthesia/Blood Transfusion Reactions: No Reported Reaction Past Psychological History: No Psychological Hx Reported Smoking Status: Never smoker Past Alcohol Use History: None Reported Past Drug Use History: None Reported General Exam - General Exam Comments Initial Comments: GENERAL: Patient is well-developed and well-nourished. Patient is nontoxic and well- hydrated and is in no acute distress. ENT: Neck is soft and supple. No significant lymphadenopathy is noted. Oropharynx is clear. Moist mucous membranes. Neck has full range of motion without eliciting any pain. EYES: The sclera were anicteric and conjunctiva were pink and moist. Extraocular movements were intact and pupils were equal round and reactive to light. Eyelids were unremarkable. PULMONARY: Unlabored respirations. Good breath sounds bilaterally. No audible rales rhonchi or wheezing was noted. CARDIOVASCULAR: There is a regular rate and rhythm without any murmurs gallops or rubs. ABDOMEN: Soft and nontender with normal bowel sounds. SKIN: Patient's skin is pale NEUROLOGIC: Patient is alert and oriented x3. Cranial nerves II through XII are grossly intact. Motor and sensory are also intact. Normal speech, volume and content. Symmetrical smile. MUSCULOSKELETAL: Normal extremities with adequate strength and full range of motion. LYMPHATICS: No significant lymphadenopathy is noted PSYCHIATRIC: Normal psychiatric evaluation. Limitations: no limitations Course Vital Signs 10/31/24 18:40 Temperature 99.2 F Pulse Rate 72 Respiratory 16 Rate Blood Pressure 137/76 O2 Sat by Pulse 96 Oximetry Medical Decision Making - Medical Decision Making Was pt. sent in by a medical professional or institution (, PA, ANIMAL CARE GIVER, urgent care, hospital, or intermediate...) When possible be specific @ -No Did you speak to anyone other than the patient for history (EMS, parent, family, police, friend...)? What history was obtained from this source @ -No Did you review nursing and triage notes (agree or disagree)? Why? @ -I reviewed and agree with nursing and triage notes Were old charts reviewed (outside hosp., previous admission, EMS record, old EKG, old radiological studies, urgent care reports/EKG's, intermediate records)? Report findings @ -No old charts were reviewed Differential Diagnosis? @ -Anemia, inaccurate blood draw, GI bleed, this is not an all-inclusive list EKG interpreted by me (3pts min.). @ -As above X-rays interpreted by me (1pt min.). @ -None done CT interpreted by me (1pt min.). @ -None done U/S interpreted by me (1pt. min.). @ -None done What testing was considered but not performed or refused? (CT, X-rays, U/S, labs)? Why? @ -None What meds were considered but not given or refused? Why? @ -None Did you discuss the management of the patient with other professionals (professionals i.e. , PA, ANIMAL CARE GIVER, lab, RT, psych nurse, addiction social worker, deposition reporter, teacher, network security officer, wrapper caser)? Give summary @ -I spoke with [facility] hospitalist agreed to admit the patient admit the patient wrote admitting orders Was smoking cessation discussed for >3mins.? @ -No Was critical care preformed (if so, how long)? @ -No Were there social determinants of health that impacted care today? How? (Homelessness, low income, unemployed, alcoholism, drug addiction, transportation, low edu. Level, literacy, decrease access to med. care, shelter, r ehab)? @ -No Was there de-escalation of care discussed even if they declined (Discuss DNR or withdrawal of care, Hospice)? DNR status @ -No What co-morbidities impacted this encounter? (DM, HTN, Smoking, COPD, CAD, Cancer, CVA, ARF, Chemo, Hep., AIDS, mental health diagnosis, sleep apnea, morbid obesity)? @ -None Was patient admitted / discharged? Hospital course, mention meds given and route, prescriptions, significant lab abnormalities, going to OR and other pertinent info. @ -Patient's hemoglobin came back 7.3 so patient has had a little ring blood count ever since August it is gone from 11.3-7.3 so patient will be admitted hemoglobin will be tracked. Undiagnosed new problem with uncertain prognosis? @ -No Drug Therapy requiring intensive monitoring for toxicity (Heparin, Nitro, Insulin, Cardizem)? @ -No Were any procedures done? @ -No Diagnosis/symptom? @ -Anemia Acute, or Chronic, or Acute on Chronic? @ -Acute Uncomplicated (without systemic symptoms) or Complicated (systemic symptoms)? @ -complicated Side effects of treatment? @ -No Exacerbation, Progression, or Severe Exacerbation? @ -No Poses a threat to life or bodily function? How? (Chest pain, [place], [place], pneumonia, PE, COPD, DKA, ARF, appy, cholecystitis, CVA, Diverticulitis, Homicidal, Suicidal, threat to staff... and all critical care pts) @ -No - Lab Data Result diagrams: 10/31/24 19:19 10/31/24 19:19 Lab Results 10/31/24 10/31/24 10/31/24 Range/Units 19:19 19:19 19:19 WBC 7.10 (4.50-10.00) 10*3/uL RBC 2.60 L (4.10-5.20) 10*6/uL Hgb 7.3 L (12.0-15.0) g/dL Hct 22.9 L (37.2-46.3) % MCV 88.1 (80.0-97.0) fL MCH 28.1 (27.0-32.0) pg MCHC 31.9 L (32.0-37.0) g/dL Plt Count 266 D (140-440) 10*3/uL MPV 9.3 L (9.5-12.2) fL Immature Gran % (Auto) 0.8 % Neutrophils % 75.3 % Lymphocytes % 10.8 % Monocytes % 10.0 % Eosinophils % 2.5 % Basophils % 0.6 % Immature Gran # 0.06 H (0.00-0.04) 10*3/uL Neutrophils # 5.34 (1.80-7.70) 10*3/uL Lymphocytes # 0.77 L (0.90-5.00) 10*3/uL Monocytes # 0.71 (0.20-1.00) 10*3/uL Eosinophils # 0.18 (0.04-0.35) 10*3/uL Basophils # 0.04 (0.00-0.10) 10*3/uL Sodium 135 L (137-145) mmol/L Potassium 5.2 H (3.5-5.1) mmol/L Chloride 102 (98-107) mmol/L Carbon Dioxide 23 (22-30) mmol/L Anion Gap 10 mmol/L BUN 51 H (7-17) mg/dL Creatinine 1.58 H (0.52-1.04) mg/dL Est GFR (CKD-EPI)AfAm 37 (>60 ml/min/1.73 sqM) Est GFR (CKD-EPI)NonAf 32 (>60 ml/min/1.73 sqM) Glucose 121 H (74-99) mg/dL Calcium 8.9 (8.4-10.2) mg/dL Magnesium 2.2 (1.6-2.3) mg/dL Total Bilirubin 0.4 (0.2-1.3) mg/dL AST 56 H (14-36) U/L ALT 61 H (4-34) U/L Alkaline Phosphatase 118 (38-126) U/L Total Protein 6.2 L (6.3-8.2) g/dL Albumin 3.2 L (3.5-5.0) g/dL Blood Type Blood Type Confirm A Positive Blood Type Recheck Bld Type Recheck Status Antibody Screen Spec Expiration Date 10/31/24 Range/Units 19:30 WBC (4.50-10.00) 10*3/uL RBC (4.10-5.20) 10*6/uL Hgb (12.0-15.0) g/dL Hct (37.2-46.3) % MCV (80.0-97.0) fL MCH (27.0-32.0) pg MCHC (32.0-37.0) g/dL Plt Count (140-440) 10*3/uL MPV (9.5-12.2) fL Immature Gran % (Auto) % Neutrophils % % Lymphocytes % % Monocytes % % Eosinophils % % Basophils % % Immature Gran # (0.00-0.04) 10*3/uL Neutrophils # (1.80-7.70) 10*3/uL Lymphocytes # (0.90-5.00) 10*3/uL Monocytes # (0.20-1.00) 10*3/uL Eosinophils # (0.04-0.35) 10*3/uL Basophils # (0.00-0.10) 10*3/uL Sodium (137-145) mmol/L Potassium (3.5-5.1) mmol/L Chloride (98-107) mmol/L Carbon Dioxide (22-30) mmol/L Anion Gap mmol/L BUN (7-17) mg/dL Creatinine (0.52-1.04) mg/dL Est GFR (CKD-EPI)AfAm (>60 ml/min/1.73 sqM) Est GFR (CKD-EPI)NonAf (>60 ml/min/1.73 sqM) Glucose (74-99) mg/dL Calcium (8.4-10.2) mg/dL Magnesium (1.6-2.3) mg/dL Total Bilirubin (0.2-1.3) mg/dL AST (14-36) U/L ALT (4-34) U/L Alkaline Phosphatase (38-126) U/L Total Protein (6.3-8.2) g/dL Albumin (3.5-5.0) g/dL Blood Type A Positive Blood Type Confirm Blood Type Recheck No Previous Record Bld Type Recheck Status CABO Indicated Antibody Screen NEGATIVE Spec Expiration Date 11/03/20242329 Disposition Clinical Impression: Anemia Disposition: ADMITTED IP TO [facility] Referrals: Nilton Craven MD [Primary Care Provider] - 1-2 days Time of Disposition: 20:45
[2024-10-31 19:28] LABS: Basophils # (A) 0.04 10*3/uL (0.00-0.10); Basophils % (A) 0.6 %; Eosinophils # (A) 0.18 10*3/uL (0.04-0.35); Eosinophils % (A) 2.5 %; HCT 22.9 % (37.2-46.3); HGB 7.3 g/dL (12.0-15.0); Lymphocytes # (A) 0.77 10*3/uL (0.90-5.00); Lymphocytes % (A) 10.8 %; MCH 28.1 pg (27.0-32.0); MCHC 31.9 g/dL (32.0-37.0); MCV 88.1 fL (80.0-97.0); Mean Platelet Volume 9.3 fL (9.5-12.2); Monocytes # (A) 0.71 10*3/uL (0.20-1.00); Neutrophils # (A) 5.34 10*3/uL (1.80-7.70); Neutrophils % (A) 75.3 %; RDW 13.4 % (11.5-14.5)
[2024-10-31 19:39] LABS: ALT 61 U/L (4-34); AST 56 U/L (14-36); African American GFR (CKD) 37 (>60 ml/min/1.73 sqM); Albumin 3.2 g/dL (3.5-5.0); Alkaline Phosphatase 118 U/L (38-126); Anion Gap 10 mmol/L; Blood Urea Nitrogen 51 mg/dL (7-17); Calcium 8.9 mg/dL (8.4-10.2); Carbon Dioxide 23 mmol/L (22-30); Chloride 102 mmol/L (98-107); Glucose 121 mg/dL (74-99); Magnesium 2.2 mg/dL (1.6-2.3); Non-African American GFR(CKD) 32 (>60 ml/min/1.73 sqM); Potassium 5.2 mmol/L (3.5-5.1); Sodium 135 mmol/L (137-145); Total Bilirubin 0.4 mg/dL (0.2-1.3); Total Protein 6.2 g/dL (6.3-8.2)
[2024-10-31 19:44] LABS: Platelet Count 266 10*3/uL (140-440)
[2024-10-31] MEDS: SODIUM CHLORIDE 0.9% 1,000 ML IV ONE (21:24)
[2024-11-01] MEDS ORDERED: ACETAMINOPHEN TAB 325 MG TAB PO PRN (00:53)
[2024-11-01] MEDS: HYDROcodone/APAP 5-325MG 1 EACH TAB PO PRN (01:11)
[2024-11-01] MEDS: SODIUM ZIRCONIUM CYCLOSILICATE 10 GM PACKET PO ONE (01:11)
[2024-11-01 03:34] LABS: Basophils # (A) 0.05 10*3/uL (0.00-0.10); Basophils % (A) 0.8 %; Eosinophils # (A) 0.14 10*3/uL (0.04-0.35); Eosinophils % (A) 2.2 %; HCT 21.6 % (37.2-46.3); Lymphocytes # (A) 0.82 10*3/uL (0.90-5.00); Lymphocytes % (A) 12.6 %; MCH 27.9 pg (27.0-32.0); MCHC 31.5 g/dL (32.0-37.0); MCV 88.5 fL (80.0-97.0); Mean Platelet Volume 9.2 fL (9.5-12.2); Monocytes # (A) 0.64 10*3/uL (0.20-1.00); Monocytes % (A) 9.9 %; Neutrophils # (A) 4.79 10*3/uL (1.80-7.70); Neutrophils % (A) 73.7 %; Platelet Count 264 10*3/uL (140-440); RBC 2.44 10*6/uL (4.10-5.20); RDW 13.2 % (11.5-14.5); WBC 6.49 10*3/uL (4.50-10.00)
[2024-11-01 03:36] LABS: Partial Thromboplastin Time 23.3 sec (22.0-30.0); Prothrombin Time 11.2 sec (10.0-12.5)
[2024-11-01 03:41] LABS: HGB 6.8 g/dL (12.0-15.0)
[2024-11-01 06:05] LABS: Glucose,Whole Blood 149 mg/dL (70-110)
[2024-11-01] MEDS ORDERED: DEXTROSE 50% SYRINGE 50 ML IVP PRN ×2 (09:42)
[2024-11-01 11:56] LABS: Glucose,Whole Blood 148 mg/dL (70-110)
[2024-11-01] MEDS: INSULIN LISPRO (HumaLOG) 100 UNIT/ML 10 mL VL SQ SCH (12:33)
[2024-11-01] MEDS: HEPARIN SODIUM,PORCINE 5,000 UNIT/ML 1 ML VIAL SQ SCH (15:10)
[2024-11-01] MEDS: SODIUM FERRIC GLUCONAT-SUCROSE 125 MG in SODIUM CHLORIDE 0.9% 100 ML IVPB SCH (15:10)
[2024-11-01 16:09] LABS: HGB 7.8 g/dL (12.0-15.0); MCH 28.7 pg (27.0-32.0); MCHC 32.5 g/dL (32.0-37.0); MCV 88.2 fL (80.0-97.0); Platelet Count 278 10*3/uL (140-440); RBC 2.72 10*6/uL (4.10-5.20); RDW 13.2 % (11.5-14.5); WBC 5.59 10*3/uL (4.50-10.00)
[2024-11-01 16:50] LABS: Glucose,Whole Blood 189 mg/dL (70-110)
--- NOTE | 2024-11-01 16:53 | P.HPIM ---
History of Present Illness H&P Date: 11/01/24 Patient is a 74-year-old female with diabetes, CKD, hypertension, hypothyroidism coming from her senior living here for low hemoglobin. Patient reported that she lives in a senior living and she required blood work they found her hemoglobin to be 6.8. She denied any associated symptoms. She denied hematochezia, hematemesis, bruising, bleeding, lightheadedness, dizziness, fatigue, shortness of breath, chest pain, palpitations, abdominal pain. She was last seen in October 13, 2024 and was admitted for UTI with sepsis and was sent to rehab with p.o. antibiotics. On admission: Vitals: 99.2 Fahrenheit, RI 72, RR 16, BP 137/76, O2 saturation 96% on room air Labs: WBC 7.1, hemoglobin 7.3, MCV 88.1, platelet count 266,000, sodium 135, potassium 5.2, bicarb 23, BUN 51, creatinine 1.58, glucose 121, AST 56, ALT 61, calcium 8.9, magnesium 2.2. ED documentation reviewed Review of systems: Pertinent positives and negatives as discussed in HPI, a complete review of systems was performed and all other systems are negative. Social history: Tobacco: none Alcohol: none Recreational drugs: none Travel: none Physical examination: Vital signs reviewed General: non toxic, no distress, appears at stated age, on room air Derm: no unusual rashes/lesions, warm Head: atraumatic, normocephalic, symmetric Eyes: EOMI, anicteric sclera, pupils equal round reactive to light ENT: Nose and ears atraumatic Neck: No cervical lymphadenopathy, trachea midline, supple Mouth: no lip lesion, mucus membranes moist Cardiovascular: S1S2 reg, no murmur Lungs: CTA bilateral, no rhonchi, no rales, no accessory muscle use Abdominal: soft, nondistended, nontender to palpation, no guarding Ext: muscle strength 5 out of 5 in all 4 extremities grossly, no gross muscle atrophy, no contractures, positive dorsalis pedis pulse bilateral, no edema Neuro: CN II-XI grossly intact, no gross focal neuro deficits Psych: Alert and oriented x 3, appropriate affect and mood Assessment/Plan: 74-year-old female with diabetes, CKD and hypothyroidism here for evaluation of low hemoglobin. Found to have normocytic anemia at 6.8 requiring transfusion. The patient is admitted with an anticipated greater than than 2 midnight stay for evaluation of anemia Active: #. Normocytic anemia status post 1 unit packed RBC transfusion Admission hemoglobin was 7.3. Hemoglobin today 6.8. Transfuse 1 unit packed RBC Recheck CBC in a few hours after transfusion IV iron 125 mg today and tomorrow Check ferritin, folate, B12 BMP and CBC tomorrow Continue to monitor vital signs #. Hyperkalemia Potassium 5.2, patient asymptomatic at this time Lokelma 10 mg given once #. CKD stage III at baseline Creatinine 1.58 Avoid nephrotoxic agents Continue to monitor renal function Chronic Conditions: #. Diabetes mellitus -Hemoglobin A1c 7.4 -Hold home medications -Glucose Accu-Cheks ACHS -Initiate Insulin sliding scale ACHS -Monitor for hypoglycemia #. Hypertension #. Hyperlipidemia #. Hypothyroidism -Resume home meds DVT ppx: Heparin SQ every 8 hours CODE STATUS: Full Discussed with: Patient Anticipated discharge place: [facility] Anuja Max MD PGY-1 Internal Medicine Dictation was produced using [employer] dictation software. please excuse any grammatical, word or spelling errors. Attestation: I have seen and examined this patient with my resident, assessment and plan discussed with the resident, agree with assessment and plan as written above. Dr. Zapien Past Medical History Past Medical History: Diabetes Mellitus, Hypertension, Renal Disease, Thyroid Disorder Additional Past Medical History / Comment(s): renal insuff History of Any Multi-Drug Resistant Organisms: None Reported Past Surgical History: Cholecystectomy, Hysterectomy, Orthopedic Surgery Additional Past Surgical History / Comment(s): cervical fusion Past Anesthesia/Blood Transfusion Reactions: No Reported Reaction Past Psychological History: No Psychological Hx Reported Smoking Status: Never smoker Past Alcohol Use History: None Reported Past Drug Use History: None Reported Medications and Allergies Home Medications Medication Instructions Recorded Confirmed Type Atorvastatin [Lipitor] 20 mg PO DAILY@0800 09/17/24 11/01/24 History Gabapentin [Neurontin] 400 mg PO HS@209909/17/24 11/01/24 History Sertraline [Zoloft] 100 mg PO BID@0800,209909/17/24 11/01/24 History sitaGLIPtin [Januvia] 25 mg PO DAILY@0800 09/17/24 11/01/24 History Acetaminophen [Tylenol] 975 mg PO Q6H PRN 10/12/24 11/01/24 History Levothyroxine Sodium [Synthroid] 75 mcg PO SUTUWEFRSA@59910/12/24 11/01/24 History Levothyroxine Sodium [Synthroid] 100 mcg PO MOTH@59910/12/24 11/01/24 History amLODIPine [Norvasc] 5 mg PO DAILY@0800 10/12/24 11/01/24 History HYDROcodone/APAP 5-325MG [[place] 1 tab PO Q6HR PRN 3 Days #12 tab 10/20/24 11/01/24 Rx 5-325] Aspirin 81 mg PO DAILY@0811/01/24 11/01/24 History Ferrous Sulfate [Feosol] 325 mg PO DAILY@0711/01/24 11/01/24 History Glucerna Shake 120 - 237 ml PO TID@0800,1200,1700 11/01/24 11/01/24 History INSULIN LISPRO (HumaLOG) [HumaLOG] See Protocol SQ ACHS 11/01/24 11/01/24 History Magnesium Hydroxide [Milk of 7,200 mg PO DIRECTED PRN 11/01/24 11/01/24 History Magnesia Concentrate] Metoprolol Succinate (ER) [Toprol 25 mg PO DAILY@0811/01/24 11/01/24 History XL] Multivitamins, Thera [Multivitamin 1 tab PO DAILY@0711/01/24 11/01/24 History (formulary)] Na Phos,M-B/Na Phos,Di-Ba [Fleet 133 ml RECTAL DAILY PRN 11/01/24 11/01/24 History Adult] bisacodyL [Dulcolax] 10 mg RECTAL DAILY PRN 11/01/24 11/01/24 History Allergies Allergy/AdvReac Type Severity Reaction Status Date / Time furosemide [From Lasix] Allergy Confusion Verified 11/01/24 09:46 Physical Exam Vitals: Vital Signs Temp Pulse Pulse Resp BP BP Pulse Ox 11/01/24 07:26 98.1 F 60 15 148/69 96 11/01/24 05:48 98 F 62 17 121/78 95 11/01/24 05:28 97.8 F 60 18 124/75 95 11/01/24 05:16 97.7 F 66 18 118/71 94 L 11/01/24 00:29 98.6 F 70 18 122/74 92 L 10/31/24 23:33 72 17 141/77 95 10/31/24 22:28 99.3 F 70 17 147/76 95 10/31/24 18:40 99.2 F 72 16 137/76 96 Intake and Output 10/31/24 11/01/24 11/01/24 22:59 06:59 14:59 Intake Total 0 Output Total 550 Balance -550 Intake: Blood Product 0 Rc Irr As1 Unit 0 [id number] Output: Urine 550 Other: Weight 68.039 kg 68.039 kg Results CBC & Chem 7: 11/01/24 15:47 10/31/24 19:19 Labs: Abnormal Lab Results - Last 24 Hours (Table) 10/31/24 10/31/24 10/31/24 Range/Units 19:19 19:19 19:30 RBC 2.60 L (4.10-5.20) 10*6/uL Hgb 7.3 L (12.0-15.0) g/dL Hct 22.9 L (37.2-46.3) % MCHC 31.9 L (32.0-37.0) g/dL MPV 9.3 L (9.5-12.2) fL Immature Gran # 0.06 H (0.00-0.04) 10*3/uL Lymphocytes # 0.77 L (0.90-5.00) 10*3/uL Sodium 135 L (137-145) mmol/L Potassium 5.2 H (3.5-5.1) mmol/L BUN 51 H (7-17) mg/dL Creatinine 1.58 H (0.52-1.04) mg/dL Glucose 121 H (74-99) mg/dL POC Glucose (mg/dL) (70-110) mg/dL AST 56 H (14-36) U/L ALT 61 H (4-34) U/L Total Protein 6.2 L (6.3-8.2) g/dL Albumin 3.2 L (3.5-5.0) g/dL Crossmatch See Detail 11/01/24 11/01/24 Range/Units 02:53 06:03 RBC 2.44 L (4.10-5.20) 10*6/uL Hgb 6.8 L* (12.0-15.0) g/dL Hct 21.6 L (37.2-46.3) % MCHC 31.5 L (32.0-37.0) g/dL MPV 9.2 L (9.5-12.2) fL Immature Gran # 0.05 H (0.00-0.04) 10*3/uL Lymphocytes # 0.82 L (0.90-5.00) 10*3/uL Sodium (137-145) mmol/L Potassium (3.5-5.1) mmol/L BUN (7-17) mg/dL Creatinine (0.52-1.04) mg/dL Glucose (74-99) mg/dL POC Glucose (mg/dL) 149 H (70-110) mg/dL AST (14-36) U/L ALT (4-34) U/L Total Protein (6.3-8.2) g/dL Albumin (3.5-5.0) g/dL Crossmatch
[2024-11-01 20:44] LABS: Glucose,Whole Blood 132 mg/dL (70-110)
[2024-11-01] MEDS: GABAPENTIN 400 MG CAP PO SCH (21:12)
[2024-11-01] MEDS: SERTRALINE 100 MG TAB PO SCH (21:12)
[2024-11-02 02:08] VITALS: RESP 16
[2024-11-02 05:32] LABS: HCT 26.1 % (37.2-46.3); HGB 8.4 g/dL (12.0-15.0); MCH 28.8 pg (27.0-32.0); MCHC 32.2 g/dL (32.0-37.0); MCV 89.4 fL (80.0-97.0); Mean Platelet Volume 9.3 fL (9.5-12.2); Platelet Count 279 10*3/uL (140-440); RBC 2.92 10*6/uL (4.10-5.20); RDW 13.4 % (11.5-14.5); WBC 5.32 10*3/uL (4.50-10.00)
[2024-11-02 06:09] LABS: Glucose,Whole Blood 127 mg/dL (70-110)
[2024-11-02] MEDS: LEVOTHYROXINE 75 MCG TAB PO SCH (06:58)
[2024-11-02] MEDS: amLODIPine 5 MG TAB PO SCH (07:51)
[2024-11-02] MEDS: ASPIRIN 81 MG PO SCH (07:51)
[2024-11-02] MEDS: ATORVASTATIN 20 MG TAB PO SCH (07:51)
[2024-11-02] MEDS: METOPROLOL SUCCINATE (ER) 25 MG TAB.ER.24H PO SCH (07:51)
[2024-11-02 08:30] LABS: BUN/Creat Ratio 25.75 Ratio (12.00-20.00); Blood Urea Nitrogen 41.2 mg/dL (9.0-27.0); Calcium 8.6 mg/dL (8.7-10.3); Carbon Dioxide 22.8 mmol/L (21.6-31.8); Chloride 108 mmol/L (96-109); Glucose 121 mg/dL (70-110); Potassium 4.9 mmol/L (3.5-5.5); Sodium 141 mmol/L (135-145)
[2024-11-02 11:21] LABS: Glucose,Whole Blood 149 mg/dL (70-110)
--- NOTE | 2024-11-02 12:38 | P.DS ---
Providers Date of admission: 11/02/24 08:18 Attending physician: Marcelina Weston Primary care physician: Nilton Craven Hospital Course: Hospital Course: Patient is a 74-year-old female with diabetes, CKD, hypertension, hypothyroidism coming from her long-term here for low hemoglobin. Patient reported that she lives in a long-term and she required blood work they found her hemoglobin to be 6.8. She denied any associated symptoms. She denied hematochezia, hematemesis, bruising, bleeding, lightheadedness, dizziness, fatigue, shortness of breath, chest pain, palpitations, abdominal pain. She was last seen in October 13, 2024 and was admitted for UTI with sepsis and was sent to rehab with p.o. antibiotics. On admission: Vitals: 99.2 Fahrenheit, NC 72, RR 16, BP 137/76, O2 saturation 96% on room air Labs: WBC 7.1, hemoglobin 7.3, MCV 88.1, platelet count 266,000, sodium 135, potassium 5.2, bicarb 23, BUN 51, creatinine 1.58, glucose 121, AST 56, ALT 61, calcium 8.9, magnesium 2.2. Patient was admitted for evaluation of normocytic anemia as her hemoglobin dropped to 6.8. Transfused 1 unit packed RBC and provided IV iron. Hemoglobin improved throughout hospital stay. Ferritin and B12 are normal levels. Patient remained asymptomatic and had no new complications. She is cleared to discharge back to [facility] and to continue home oral iron supplement with vitamin C. She is advised to follow-up with her PCP on outpatient basis. Final Diagnosis: #. Normocytic anemia status post 1 unit packed RBC transfusion #. Hyperkalemia, resolved #. CKD stage III at baseline #. Diabetes mellitus #. Hypertension #. Hyperlipidemia #. Hypothyroidism Physical examination: Vital signs reviewed General: non toxic, no distress Derm: no unusual rashes/lesions, warm Head: atraumatic, normocephalic, symmetric Eyes: EOMI, anicteric sclera, pupils equal round reactive to light ENT: Nose and ears atraumatic Neck: No cervical lymphadenopathy, trachea midline, supple Mouth: no lip lesion, mucus membranes moist Cardiovascular: S1S2 reg, no murmur Lungs: CTA bilateral, no rhonchi, no rales, no accessory muscle use Abdominal: soft, nondistended, nontender to palpation, no guarding Ext: muscle strength 5 out of 5 in all 4 extremities grossly, no gross muscle atrophy, no contractures, positive dorsalis pedis pulse bilateral, no edema Neuro: CN II-XI grossly intact, no gross focal neuro deficits Psych: Alert, oriented, appropriate affect and mood Plan - Discharge Summary New Discharge Prescriptions: New Ascorbic Acid [Vitamin C] 1,000 mg PO AC-BRKFST #30 tablet Continue Atorvastatin [Lipitor] 20 mg PO DAILY@0800 Levothyroxine Sodium [Synthroid] 100 mcg PO MOTH@0600 Aspirin 81 mg PO DAILY@0800 Magnesium Hydroxide [Milk of Magnesia Concentrate] 7,200 mg PO DIRECTED PRN PRN Reason: 2 days no bm Sertraline [Zoloft] 100 mg PO BID@0800,2099 sitaGLIPtin [Januvia] 25 mg PO DAILY@0800 Gabapentin [Neurontin] 400 mg PO HS@2099 amLODIPine [Norvasc] 5 mg PO DAILY@0800 Levothyroxine Sodium [Synthroid] 75 mcg PO SUTUWEFRSA@0600 Acetaminophen [Tylenol] 975 mg PO Q6H PRN PRN Reason: Pain Or Fever > 100.5 HYDROcodone/APAP 5-325MG [[place] 5-325] 1 tab PO Q6HR PRN 3 Days #12 tab PRN Reason: Pain Glucerna Shake 120 - 237 ml PO TID@0800,1200,1700 Multivitamins, Thera [Multivitamin (formulary)] 1 tab PO DAILY@0700 Ferrous Sulfate [Iron (65 MG Elemental)] 325 mg PO DAILY@0700 Metoprolol Succinate (ER) [Toprol XL] 25 mg PO DAILY@0800 INSULIN LISPRO (HumaLOG) [HumaLOG] See Protocol SQ ACHS bisacodyL [Dulcolax] 10 mg RECTAL DAILY PRN PRN Reason: Constipation Na Phos,M-B/Na Phos,Di-Ba [Fleet Adult] 133 ml RECTAL DAILY PRN PRN Reason: Constipation Discharge Medication List Atorvastatin [Lipitor] 20 mg PO DAILY@0800 09/17/24 [History] Gabapentin [Neurontin] 400 mg PO HS@209909/17/24 [History] Sertraline [Zoloft] 100 mg PO BID@0800,209909/17/24 [History] sitaGLIPtin [Januvia] 25 mg PO DAILY@0809/17/24 [History] Acetaminophen [Tylenol] 975 mg PO Q6H PRN 10/12/24 [History] Levothyroxine Sodium [Synthroid] 75 mcg PO SUTUWEFRSA@59910/12/24 [History] Levothyroxine Sodium [Synthroid] 100 mcg PO MOTH@59910/12/24 [History] amLODIPine [Norvasc] 5 mg PO DAILY@79910/12/24 [History] HYDROcodone/APAP 5-325MG [[place] 5-325] 1 tab PO Q6HR PRN 3 Days #12 tab 10/20/24 [Rx] Aspirin 81 mg PO DAILY@79911/01/24 [History] Ferrous Sulfate [Iron (65 MG Elemental)] 325 mg PO DAILY@69911/01/24 [History] Glucerna Shake 120 - 237 ml PO TID@0800,1200,1700 11/01/24 [History] INSULIN LISPRO (HumaLOG) [HumaLOG] See Protocol SQ ACHS 11/01/24 [History] Magnesium Hydroxide [Milk of Magnesia Concentrate] 7,200 mg PO DIRECTED PRN 11/01/24 [History] Metoprolol Succinate (ER) [Toprol XL] 25 mg PO DAILY@79911/01/24 [History] Multivitamins, Thera [Multivitamin (formulary)] 1 tab PO DAILY@69911/01/24 [History] Na Phos,M-B/Na Phos,Di-Ba [Fleet Adult] 133 ml RECTAL DAILY PRN 11/01/24 [History] bisacodyL [Dulcolax] 10 mg RECTAL DAILY PRN 11/01/24 [History] Ascorbic Acid [Vitamin C] 1,000 mg PO AC-BRKFST #30 tablet 11/02/24 [Rx] Follow up Appointment(s)/Referral(s): Nilton Craven MD [Primary Care Provider] - 1-2 days Patient Instructions/Handouts: Iron Deficiency Anemia (GEN) Discharge Disposition: TRANSFER TO SNF/ECF
[2024-11-02 13:43] VITALS: BP 120/72; PULSE 66; TEMP 98.1
[2024-11-05] MEDS ORDERED: LEVOTHYROXINE 100 MCG TAB PO SCH (06:00)
== END 2024-11-02 15:44 | DRG 812 ==
LOC: EEVIPCON 18:33 → EC 18:33 → 4SSUR 20:46 → OBSVTOIN 11-02 08:18
PROVIDERS: ADMIT Hospitalist; ATTEND Hospitalist
PROC: 30233N1 Transfusion of Nonautologous Red Blood Cells into Peripheral Vein, Percutaneous Approach (ICD-10-PCS; principal; 2024-11-01)
DX: D64.9 Anemia, unspecified (principal); E03.9 Hypothyroidism, unspecified; N18.30 Chronic kidney disease, stage 3 unspecified; E11.22 Type 2 diabetes mellitus with diabetic chronic kidney disease; I12.9 Hypertensive chronic kidney disease with stage 1 through stage 4 chronic kidney disease, or unspecified chronic kidney disease; Z79.4 Long term (current) use of insulin; E78.5 Hyperlipidemia, unspecified; E87.5 Hyperkalemia; Z79.82 Long term (current) use of aspirin; Z79.890 Hormone replacement therapy; Z79.84 Long term (current) use of oral hypoglycemic drugs; Z79.899 Other long term (current) drug therapy; Z87.440 Personal history of urinary (tract) infections; Z86.19 Personal history of other infectious and parasitic diseases; Z98.1 Arthrodesis status; Z88.8 Allergy status to other drugs, medicaments and biological substances
CPT/HCPCS: 36415; 80048; 80053; 82607; 82728; 82747; 83735; 85025; 85027; 85610; 85730; 86850; 86900; 86901; 86920; 99285